=== PATIENT | male | born 1960 | race Two or more races ===

== ENCOUNTER → 2020-09-15 15:36 | Outpatient (BNVA) | payer OTHER, SELFPAY | PROVIDERS: PCP Internal Medicine; Visit Provider Anesthesiology | DX: M79.10 Myalgia, unspecified site (principal) | CPT/HCPCS: 20553; 99212; J3300 ==

== ENCOUNTER 2020-11-22 06:40 | Outpatient (REF) | payer OTHER, SELFPAY | END 2020-11-22 06:41 | disposition home or self-care (01) | LOC: HO.LAB 06:40 | PROVIDERS: Visit Provider Internal Medicine | DX: Z20.822 Contact with and (suspected) exposure to COVID-19 (principal) | CPT/HCPCS: 36415; C9803; U0003 ==

== ENCOUNTER 2020-12-30 07:04 | Emergency (ER) | payer OTHER, SELFPAY ==
[2020-12-30 07:16] VITALS: BP 151/81; PULSE 103; RESP 18; TEMP 36.6; O2SAT 97; BMI 28.9
--- NOTE | 2020-12-30 07:27 | ED.ARRPALP ---
HPI - Arrhythmia/Palpitations General Chief Complaint: General Medical Stated Complaint: RAPID HEART BEAT Time Seen by Provider: 12/30/20 07:27 Source: patient Mode of arrival: ambulatory Limitations: no limitations History of Present Illness HPI narrative: Patient history of hypertension high cholesterol on Deejay inhibitor was seen by his PCP yesterday and noticed that he has a sinus tachycardia advised to go to the hospital he comes here today patient denies any symptoms as such on arrival patient heart rate was 103 sinus rhythm patient feels fine otherwise no dizziness no shortness of breath no weakness denies any chest patient is unaware of tachycardia. Patient occasionally drinks coffee Related Data Previous Rx's Medication Instructions Recorded metoprolol tartrate 25 mg PO BID #60 tab 12/30/20 Allergies Allergy/AdvReac Type Severity Reaction Status Date / Time No Known Allergies Allergy Unverified 08/05/20 17:26 [No Known Allergies*] Review of Systems Review of Systems: Constitutional : No Weight loss, No Fever, No Chills ENT/Mouth : No sore throat, No Rhinorrhea Eyes: No Eye Pain, No Swelling Cardiovascular : No Chest Pain, no palpitations Respiratory : No Cough, No Sputum, no shortness of breath Gastrointestinal : no Nausea, No Vomiting, No Diarrhea, No abdominal Pain, no black stools Genitourinary : No Dysuria, No Urinary Frequency Musculoskeletal : No joint pain, No Myalgias, No Joint Swelling Skin : No Skin Lesions, No rash Neuro : No Weakness, No Numbness, No Dizziness, No Headache Psych : No Anxiety/Panic, No Depression Heme/Lymph: No Bruising, No Lymphadenopathy Endocrine : No Polyuria, No Polydipsia All other systems reviewed and are negative [facility] Past Medical History Medical History Myalgia, unspecified site Physical Exam Vital Signs: Vital Signs: Last Vital Signs Temp 97.8 F 12/30/20 07:16 Pulse 103 H 12/30/20 09:35 Resp 18 12/30/20 07:16 BP 151/81 H 12/30/20 09:35 Pulse Ox 97 12/30/20 07:16 Body Mass Index 28.9 Appearance: Alert. Oriented X3. No acute distress. Eyes: Pupils equal, round and reactive to light. ENT: Pharynx normal. Neck: Normal inspection. Neck supple. CVS: Normal heart rate and rhythm. Pulses normal. Respiratory: No respiratory distress. Breath sounds normal. Abdomen: Soft and nontender. Bowel sounds are present, no mass palpable, no CVA tenderness Skin: Skin warm and dry. Normal skin color. Normal skin turgor. Extremities: No lower extremity edema. Neuro: Oriented X 3. No motor deficit. No sensory deficit. Course Course Course Narrative: Patient feeling much better now heart rate in 90s denies use of cocaine for last 1 year and from his severe not be using cocaine in future blood pressure on the higher side will give him Lopressor 25 mg twice daily for blood pressure control and tachycardia advised to follow with PCP MDM - Arrhythmia/Palpitations MDM Narrative Medical decision making narrative: Patient unaware of tachycardia asymptomatic and is sinus tachycardia etiology not very clear which check the labs check the thyroid Medical Records Attestation: I reviewed the patient's medical records. Lab Data Attestation: I reviewed the patient's lab results. Result diagrams: 12/30/20 07:41 12/30/20 07:41 Labs: Lab Results 12/30/20 12/30/20 Range/Units 07:41 07:41 WBC 4.1 L (4.8-10.8) X10*3/uL RBC 4.19 L (4.60-5.80) X10*6/uL Hgb 12.8 L (14.0-18.0) g/dl Hct 38.5 L (42-52) % MCV 91.9 (80-98) fL MCH 30.5 (27.0-33.0) pg MCHC 33.2 (31.0-36.0) g/dl RDW 12.9 (11.0-16.0) % Plt Count 202 (160-400) X10*3/uL MPV 10.6 (9.4-12.4) fL Immature Gran % (Auto) 0.5 H (0.0-0.4) % Neut % (Auto) 59.5 (45-73) % Lymph % (Auto) 24.8 (20-40) % Crosby % (Auto) 11.5 H (2-11) % Eos % (Auto) 2.5 (0-4) % Baso % (Auto) 1.2 (0-2) % Lymph # (Auto) 1.0 L (1.2-4.9) X10*3/uL Crosby # (Auto) 0.5 (0.1-1.2) X10*3/uL Eos # (Auto) 0.1 (0.0-0.4) X10*3/uL Baso # (Auto) 0.1 (0.0-0.2) X10*3/uL Abs Immat Gran (auto) 0.02 (0.00-0.03) X10*3/uL Absolute Neuts (auto) 2.4 (2.0-8.3) X10*3/uL Absolute Nucleated RBC 0.000 (0.0-0.012) X10*3/uL Nucleated RBC % (auto) 0.0 (0.0-0.2) /100WBC Sodium 141 (135-145) mmol/L Potassium 4.7 (3.3-5.1) mmol/L Chloride 107 (96-108) mmol/L Carbon Dioxide 27 (22-29) mmol/L Anion Gap 12 (12-20) BUN 15 (9-16) mg/dL Creatinine 0.91 (0.5-1.4) mg/dL Estim Creat Clear Calc 83.6 Estimated GFR > 60 Random Glucose 131 H (60-115) mg/dL Calcium 8.2 L (8.4-10.2) mg/dL Total Bilirubin 0.5 (0.0-1.0) mg/dL Direct Bilirubin 0.2 (0.0-0.5) mg/dL AST 30 (5-37) U/L ALT 40 (0-40) U/L Alkaline Phosphatase 91 (39-117) U/L Total Protein 6.5 (6.5-8.0) g/dL Albumin 4.0 (3.5-5.0) g/dL TSH 5.24 H (0.32-4.0) uIU/mL Discharge Plan Discharge Clinical Impression: Tachycardia Patient Disposition: Home, Self-Care Instructions: Tachycardia (ED) Additional Instructions: Do not use cocaine. Avoid caffeine drinks. Start taking the new medication as prescribed Prescriptions: New metoprolol tartrate 25 mg tablet 25 mg PO BID Qty: 60 RF: 0 Referrals: Joreg Soriano MD [Physician] - 1 week Interventions: ED Discharge Assessment Last Done: 12/30/20 09:40 Discharge Date/Time: 12/30/20 09:41
--- NOTE | 2020-12-30 07:35 | ECG_ITS ---
Test Reason : RAPID HR Blood Pressure : / mmHG Vent. Rate : 101 BPM Atrial Rate : 101 BPM P-R Int : 178 ms QRS Dur : 094 ms QT Int : 312 ms P-R-T Axes : 059 050 068 degrees QTc Int : 404 ms Sinus tachycardia Moderate voltage criteria for LVH, may be normal variant Nonspecific T wave abnormality Abnormal ECG When compared to the previous EKG of No significant changes seen Referred By: Uri Wolf Electronically Signed By:JORGE THURSTON MD
[2020-12-30 07:47] LABS: MANUAL DIFF FLAG NO
[2020-12-30 08:01] LABS: Basophils Absolute Auto 0.1 X10*3/uL (0.0-0.2); Basophils Percent Auto 1.2 % (0-2); Eosinophils Absolute Auto 0.1 X10*3/uL (0.0-0.4); Eosinophils Percent Auto 2.5 % (0-4); Hematocrit 38.5 % (42-52); Hemoglobin 12.8 g/dl (14.0-18.0); Imm Gran Abs Auto 0.02 X10*3/uL (0.00-0.03); Imm Gran Pct Auto 0.5 % (0.0-0.4); Lymphocytes Percent Auto 24.8 % (20-40); Mean Corpuscular HGB Conc 33.2 g/dl (31.0-36.0); Mean Corpuscular Hemoglobin 30.5 pg (27.0-33.0); Mean Corpuscular Volume 91.9 fL (80-98); Mean Platelet Volume 10.6 fL (9.4-12.4); Monocytes Absolute Auto 0.5 X10*3/uL (0.1-1.2); Monocytes Percent Auto 11.5 % (2-11); Neutrophils Absolute Auto 2.4 X10*3/uL (2.0-8.3); Neutrophils Percent Auto 59.5 % (45-73); Platelet Count 202 X10*3/uL (160-400); Red Blood Count 4.19 X10*6/uL (4.60-5.80); Red Cell Distribution Width 12.9 % (11.0-16.0); White Blood Count 4.1 X10*3/uL (4.8-10.8)
[2020-12-30 08:16] LABS: Alanine Aminotransferase 40 U/L (0-40); Alkaline Phosphatase 91 U/L (39-117); Anion Gap 12 (12-20); Aspartate Amino Transferase 30 U/L (5-37); Bilirubin Direct 0.2 mg/dL (0.0-0.5); Bilirubin Total 0.5 mg/dL (0.0-1.0); Blood Urea Nitrogen 15 mg/dL (9-16); Calcium 8.2 mg/dL (8.4-10.2); Carbon Dioxide 27 mmol/L (22-29); Chloride 107 mmol/L (96-108); Creatinine Clr Calc Pharmacy 83.6; Estimated Glomerular Filt Rate > 60; Glucose Random 131 mg/dL (60-115); Potassium 4.7 mmol/L (3.3-5.1); Sodium 141 mmol/L (135-145); Total Protein 6.5 g/dL (6.5-8.0)
[2020-12-30 08:35] LABS: Thyroid Stimulating Hormone 5.24 uIU/mL (0.32-4.0)
[2020-12-30 09:35] VITALS: BP 151/81; PULSE 103
[2020-12-30] MEDS: Metoprolol Tartrate 25 MG TABLET PO (09:35)
== END 2020-12-30 09:41 | disposition home or self-care (01) ==
PROVIDERS: Emergency Provider Internal Medicine; PCP Internal Medicine
DX: R00.0 Tachycardia, unspecified (principal); I10 Essential (primary) hypertension; Z79.899 Other long term (current) drug therapy
CPT/HCPCS: 36415; 80048; 80076; 84443; 85025; 93005; 99283; 99284

== ENCOUNTER → 2021-01-05 08:22 | Outpatient (BNVA) | payer OTHER, SELFPAY | PROVIDERS: PCP Internal Medicine; Visit Provider Anesthesiology | DX: M79.10 Myalgia, unspecified site (principal) | CPT/HCPCS: 20553; 99212; J3300 ==

== ENCOUNTER → 2021-01-10 10:31 | Outpatient (BNVA) | payer OTHER, SELFPAY | PROVIDERS: PCP Internal Medicine; Visit Provider Internal Medicine | DX: R00.0 Tachycardia, unspecified (principal); I10 Essential (primary) hypertension; F14.11 Cocaine abuse, in remission | CPT/HCPCS: 99202 ==

== ENCOUNTER → 2021-02-16 08:13 | Outpatient (REF) | payer OTHER, SELFPAY ==
--- NOTE | 2021-02-16 08:17 | CA_ITS ---
Transthoracic Echocardiogram Patient (Last, First, Middle): Luis A Godinez, Gender: Male Date of : 1960 Age: 60 Procedure Date: 02/16/2021 Procedure Type: Transthoracic Echocardiogram Location: OP Height: 165.1 cm Weight: 78.47 kg BSA: 1.86 m2 Heart Rate: bpm BP: 132 / 70 mmHg Salesperson [employer]: JAZLYN Flood MD: Orville Walter MD Paving Inspector: Jorge Soriano MD Symptoms: R00.0 - Tachycardia, unspecified Study Quality: Fair/contrast ECG Rhythm: Sinus Conclusions: - Essentially normal study Findings Procedure Information Contrast agent, definity, is being given per protocol without apparent complications. Left Ventricle Normal left ventricular size, thickness, and systolic function. The visually estimated ejection fraction is between 60-65%. Diastolic function is normal for age. Right Ventricle Normal right ventricular cavity size and systolic function. Atria The left atrium is likely dilated. Interatrial shunt cannot be excluded. The right atrium is normal in size. Aortic Valve The aortic valve structure and function is likely normal. There is no aortic valve stenosis. There is no aortic valve regurgitation. Mitral Valve Normal mitral valve structure and function. There is no mitral valve regurgitation. There is no mitral valve stenosis. Pulmonic Valve The pulmonic valve is likely normal. Tricuspid Valve Likely normal tricuspid valve structure and function. Tricuspid regurgitation envelope is inadequate for calculation of right ventricular systolic pressure. Great Vessels All visible segments of the aorta are normal in size. The pulmonary artery was not well visualized. Venous The inferior vena cava is normal in size and collapses greater than 50% with inspiration. Pericardium/Pleural There is no evidence of pericardial effusion. Prior Study Comparison No prior study available for comparison. Measurements 2D Linear Measurements IVSd: 1.01 0.6-0.9/0.6-1.0 cm LVIDd: 4.05 3.9-5.3/4.2-5.9 cm LVIDs: 2.60 2.0-3.6 cm LVPWd: 1.00 0.7-1.1 cm Ao Root: 3.21 2.1-3.5 cm LV Mass: 162.34 67-162/88-224 g LVOT Diam: 2.01 3.0+(-)1.3 cm Mitral Valve MV Pk E: 0.82 MV PK A: 0.57 MV Decel Time: 219.50 E/A: 1.43 E'Lateral: 0.08 E'Medial: 0.09 Decel Carlisle: 3.73 Aortic Valve AoV Pk Rajinder: 1.25 AoV Mn Rajinder: 0.86 AoV VTI: 0.22 AoV Pk Grad: 6.28 Aov Mn Grad: 3.22 LVOT LVOT Pk Rajinder: 1.23 LVOT Mn Rajinder: 0.77 LVOT VTI: 0.21 LVOT Pk Grad: 6.08 LVOT Mn Grad: 2.77 LVOT Diam: 2.01 LVOT Area: 3.18 Diastolic Function MV Pk E: 0.82 MV Pk A: 0.57 E/A: 1.43 E'Medial: 0.09 E' Laterial: 0.08 Great Vessels Aorta Ao Root-2D: 3.21 2.0-3.7 cm Ao Asc: 3.57 2.1-3.4 cm Ao Arch: 2.92 Updated in Other Vendor System with Status of Final Jorge Soriano MD electronically signed on 02/17/2021 11:36:58 AM with status of Final
== END ==
LOC: HO.CARD 08:13
PROVIDERS: Visit Provider Internal Medicine
DX: R00.0 Tachycardia, unspecified (principal)
CPT/HCPCS: 93306; Q9957

== ENCOUNTER → 2021-02-28 10:29 | Outpatient (BNVA) | payer OTHER, SELFPAY | PROVIDERS: PCP Internal Medicine; Visit Provider Nurse Practitioner Family | DX: R00.0 Tachycardia, unspecified (principal); I10 Essential (primary) hypertension; F14.11 Cocaine abuse, in remission | CPT/HCPCS: 99212 ==

== ENCOUNTER → 2021-03-14 09:32 | Outpatient (BNVA) | payer OTHER, SELFPAY | PROVIDERS: PCP Internal Medicine; Visit Provider Nurse Practitioner Family ==

== ENCOUNTER → 2021-03-14 | Outpatient (REF) | payer OTHER, SELFPAY ==
--- NOTE | 2021-03-14 11:22 | ECG_ITS ---
Hook-up date: 2021-03-14 09:53:00 Duration: 27:37:00 Test Indications: UNSPEC TACHYCARDIA Medications: 236424 QRS complexes 1 Ventricular ectopics which represent <1 % of total QRS comp. 211 Supraventricular ectopics which represent <1 % of total QRS comp. * Paced QRS complexs which represent % of total QRS comp. VENTRICULAR ECTOPY 1 Isolated 0 Bigeminal Cycles 0 Couplets 0 Runs 0 Beats in Runs * Beats LONGEST at * BPM at :: -- * Beats FASTEST at * BPM at :: -- SUPRAVENTRICULAR ECTOPY 208 Isolated 0 Couplets 1 Runs 3 Beats in Runs 3 Beats LONGEST at 214 BPM at 10:45:47 2021-03-14 3 Beats FASTEST at 214 BPM at 10:45:47 2021-03-14 HEART RATES 61 MIN at 05:28:25 2021-03-15 93 AVG 152 MAX at 12:05:22 2021-03-14 LONGEST RR 1.0880 secs at 03:52:44 2021-03-15 S-T LEVELS Channel 1 - 128 mm at 09:53:00 2021-03-14 - 128 mm at 09:53:00 2021-03-14 Channel 2 - 128 mm at 09:53:00 2021-03-14 - 128 mm at 09:53:00 2021-03-14 Channel 3 - 128 mm at 02:91:21 -- - 128 mm at 02:91:21 Underlying rhythm is sinus; Average ventricular rate 93/min; About 44% of the time, rate>100/min (sinus tachycardia); Rare PACs, mostly isolated, no significant runs; Patient did not return diary Referred By: Ju Nelson Overread By: ALEM MARTI
== END ==
LOC: HO.CARD
PROVIDERS: Visit Provider Nurse Practitioner Family
DX: R00.0 Tachycardia, unspecified (principal)
CPT/HCPCS: 93226

== ENCOUNTER → 2021-04-04 09:30 | Outpatient (BNVA) | payer OTHER, SELFPAY | PROVIDERS: PCP Internal Medicine; Visit Provider Nurse Practitioner Family | DX: R00.0 Tachycardia, unspecified (principal); I10 Essential (primary) hypertension; F14.11 Cocaine abuse, in remission; I49.1 Atrial premature depolarization | CPT/HCPCS: Q3014 ==

== ENCOUNTER 2021-04-21 10:09 | Outpatient (REF) | payer OTHER, SELFPAY | END 2021-04-21 10:10 | disposition home or self-care (01) | LOC: HO.LAB 10:09 | PROVIDERS: Visit Provider Internal Medicine | DX: Z20.822 Contact with and (suspected) exposure to COVID-19 (principal) | CPT/HCPCS: C9803; U0003; U0005 ==

== ENCOUNTER 2021-08-08 09:07 | Outpatient (REF) | payer OTHER, SELFPAY ==
--- NOTE | ~2021-08-08 | MR_ITS ---
MR LUMBAR SPINE WITHOUT IV CONTRAST CLINICAL INFORMATION: Lumbago with left-sided sciatica. COMPARISON: Lumbar spine radiographs 02/07/2018. TECHNIQUE: MRI of the lumbar spine was obtained using routine sequences without contrast. FINDINGS: There is transitional anatomy. 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 5 nonrib-bearing lumbar-type vertebral bodies. There is grade 1 retrolisthesis of L4 on L5 and L5 on S1. There is disc desiccation at L5-S1. Modic type I endplate signal changes at L5-S1. No additional bone marrow edema. No acute fractures. Conus terminates at the L1 level. Fatty filum. There is bilateral perinephric stranding. There is a 1.3 cm probable hemorrhagic cyst partially imaged within the left kidney that can be verified with renal ultrasound. L1-L2: Left lateral disc protrusion that is in part disc osteophyte resulting in mass effect on the exiting left L1 nerve root at the left foraminal/extraforaminal junction. No central canal stenosis. No right foraminal stenosis. L2-L3: Small annular disc bulge and mild to moderate bilateral facet arthropathy and ligamentum flavum thickening. No central canal stenosis. Mild foraminal encroachment bilaterally. L3-L4: Diffuse annular disc bulge and mild to moderate bilateral facet arthropathy and ligamentum flavum thickening. No central canal stenosis. Mild foraminal encroachment bilaterally. L4-L5: Grade 1 retrolisthesis. Diffuse annular disc bulges in part disc osteophyte and severe bilateral facet arthropathy and ligamentum flavum thickening. Small synovial cyst projecting medially from the right facet joint. These findings in concert result in severe central canal stenosis, severe bilateral subarticular zone stenosis with compression of the traversing L5 nerve roots bilaterally, and moderate to severe bilateral foraminal stenosis with compression of the exiting L4 nerve roots bilaterally. L5-S1: Grade 1 retrolisthesis. Diffuse disc osteophyte and severe bilateral facet arthropathy and ligamentum flavum giving. Epidural lipomatosis. Findings in concert result in severe central canal stenosis as well as moderate bilateral foraminal stenosis with mild mass effect on the exiting nerve roots bilaterally. MR/MR lumbar spine wo con IMPRESSION: - Transitional anatomy. S1 is lumbarized sharing a rudimentary disc with S2. Please correlate with plain films prior to any percutaneous or surgical intervention. - At L5-S1, advanced multifactorial degenerative changes and epidural lipomatosis result in severe central canal stenosis as well as moderate bilateral foraminal stenosis with mild mass effect on the exiting nerve roots bilaterally. - At L4-L5, grade 1 retrolisthesis and advanced multifactorial degenerative changes result in severe central canal stenosis, severe bilateral subarticular zone stenosis with compression of the traversing L5 nerve roots bilaterally, and moderate to severe bilateral foraminal stenosis with compression of the exiting L4 nerve roots bilaterally. - At L1-L2, there is a left lateral disc protrusion that is in part disc osteophyte resulting in mass effect on the exiting left L1 nerve root at the left foraminal/extraforaminal junction. - There is a 1.3 cm probable hemorrhagic cyst partially imaged within the left kidney that can be verified with renal ultrasound.
== END 2021-08-08 09:08 | disposition home or self-care (01) ==
LOC: HO.MRI 09:07
PROVIDERS: PCP Internal Medicine; Visit Provider Internal Medicine
DX: M54.42 Lumbago with sciatica, left side (principal)
CPT/HCPCS: 72148

== ENCOUNTER → 2021-08-18 08:04 | Outpatient (BNVA) | payer OTHER, SELFPAY | PROVIDERS: PCP Internal Medicine; Visit Provider Anesthesiology | DX: M79.10 Myalgia, unspecified site (principal) | CPT/HCPCS: 20552; 99212; J3300 ==

== ENCOUNTER 2021-11-02 12:41 | Outpatient (REF) | payer OTHER, SELFPAY ==
[2021-11-02 13:01] LABS: COVID-19 Test Negative (Negative); IDNOW Serial# 16C4AD1C
== END 2021-11-02 12:42 | disposition home or self-care (01) ==
LOC: HO.LAB 12:41
PROVIDERS: Visit Provider Internal Medicine
DX: Z20.822 Contact with and (suspected) exposure to COVID-19 (principal)
CPT/HCPCS: 36415; 87635; C9803

== ENCOUNTER 2021-11-15 09:03 | Outpatient (REF) | payer OTHER, SELFPAY ==
[2021-11-15 10:06] LABS: COVID-19 Test Negative (Negative); IDNOW Serial# 16C4AD1C
== END 2021-11-15 09:04 | disposition home or self-care (01) ==
LOC: HO.LAB 09:03
PROVIDERS: Visit Provider Internal Medicine
DX: Z20.822 Contact with and (suspected) exposure to COVID-19 (principal)
CPT/HCPCS: 36415; 87635; C9803

== ENCOUNTER 2021-11-28 13:13 | Outpatient (REF) | payer OTHER, SELFPAY ==
[2021-11-28 15:11] LABS: Binax Internal Control QC Valid; Binax Now Covid-19 Ag Negative (Negative)
== END 2021-11-28 13:14 | disposition home or self-care (01) ==
LOC: HO.LAB 13:13
PROVIDERS: Visit Provider Internal Medicine
DX: Z20.822 Contact with and (suspected) exposure to COVID-19 (principal)
CPT/HCPCS: 36415; C9803

== ENCOUNTER → 2021-11-29 09:05 | Outpatient (BNVA) | payer OTHER, SELFPAY | PROVIDERS: PCP Internal Medicine; Visit Provider Internal Medicine | DX: Z13.89 Encounter for screening for other disorder (principal) ==

== ENCOUNTER → 2022-04-04 13:43 | Outpatient (BNVA) | payer OTHER, SELFPAY | PROVIDERS: PCP Internal Medicine; Referring Provider Internal Medicine; Visit Provider Nurse Practitioner Family | DX: R00.0 Tachycardia, unspecified (principal); I10 Essential (primary) hypertension; I49.1 Atrial premature depolarization; F14.11 Cocaine abuse, in remission | CPT/HCPCS: 93005; 99212 ==

== ENCOUNTER 2022-04-26 11:51 | Outpatient (REF) | payer OTHER, SELFPAY ==
[2022-04-26 12:03] LABS: MANUAL DIFF FLAG NO
[2022-04-26 13:10] LABS: Alanine Aminotransferase 28 U/L (0-40); Albumin Level 4.3 g/dL (3.5-5.0); Alkaline Phosphatase 102 U/L (39-117); Anion Gap 15 (12-20); Aspartate Amino Transferase 23 U/L (5-37); Bilirubin Total 0.4 mg/dL (0.0-1.0); Blood Urea Nitrogen 11 mg/dL (9-16); Calcium 9.1 mg/dL (8.4-10.2); Carbon Dioxide 25 mmol/L (22-29); Chloride 106 mmol/L (96-108); Cholesterol 180 mg/dL; Estimated Glomerular Filt Rate > 60; Glucose Fasting 110 mg/dL (60-99); HDL Cholesterol 62 mg/dL; LDL Cholesterol Calculated 97 mg/dl; Potassium 4.6 mmol/L (3.3-5.1); Sodium 141 mmol/L (135-145); Total Protein 7.2 g/dL (6.5-8.0); Triglycerides 108 mg/dL
[2022-04-26 13:17] LABS: Basophils Absolute Auto 0.1 X10*3/uL (0.0-0.2); Eosinophils Absolute Auto 0.1 X10*3/uL (0.0-0.4); Eosinophils Percent Auto 2.8 % (0-4); Hematocrit 40.3 % (42.0-52.0); Hemoglobin 13.2 g/dl (14.0-18.0); Imm Gran Abs Auto 0.03 X10*3/uL (0.00-0.03); Imm Gran Pct Auto 0.6 % (0.0-0.4); Lymphocytes Absolute Auto 1.4 X10*3/uL (1.2-4.9); Lymphocytes Percent Auto 28.6 % (20-40); Mean Corpuscular HGB Conc 32.8 g/dl (31.0-36.0); Mean Corpuscular Hemoglobin 29.3 pg (27.0-33.0); Mean Corpuscular Volume 89.4 fL (80.0-98.0); Mean Platelet Volume 10.4 fL (9.4-12.4); Monocytes Absolute Auto 0.6 X10*3/uL (0.1-1.2); Monocytes Percent Auto 11.3 % (2-11); Neutrophils Absolute Auto 2.8 x10*3/uL (2.0-8.3); Neutrophils Percent Auto 55.7 % (45-73); Platelet Count 291 X10*3/uL (160-400); Red Blood Count 4.51 X10*6/uL (4.60-5.80); Red Cell Distribution Width 13.7 % (11.0-16.0)
[2022-04-26 13:32] LABS: TSH reflex Free T4 2.08 uIU/mL (0.32-4.0)
== END 2022-04-26 11:52 | disposition home or self-care (01) ==
LOC: HO.LAB 11:51
PROVIDERS: PCP Internal Medicine; Visit Provider Nurse Practitioner Family
DX: R00.0 Tachycardia, unspecified (principal)
CPT/HCPCS: 36415; 80053; 80061; 84443; 85025

== ENCOUNTER 2022-06-14 16:15 | Outpatient (REF) | payer OTHER, SELFPAY ==
--- NOTE | ~2022-06-14 | XR_ITS ---
EXAMINATION: XR CERVICAL SPINE CLINICAL INFORMATION: Spondylosis COMPARISON: Previous x-ray January 2018 TECHNIQUE: 5 views of the cervical spine including bilateral oblique were obtained. FINDINGS: There is mild head tilt to the right and curvature of the mid cervical spine to the left. Bone alignment is otherwise normal. No fracture or dislocation is seen. There is multilevel degenerative spondylosis and degenerative disc disease from C3-C4-C5 the C7-T1. There is mild right-sided neuroforaminal narrowing from bony osteophyte at C4-C5 and C5-C6. There is moderate to severe left-sided neuroforaminal narrowing from bony osteophyte from C3-C4 to C6-C7. Prevertebral soft tissues are normal. XR/XR cervical spine 4V IMPRESSION: Multilevel degenerative changes.
== END 2022-06-14 16:16 | disposition home or self-care (01) ==
LOC: HO.XRAY 16:15
PROVIDERS: PCP Internal Medicine; Visit Provider Anesthesiology
DX: M54.2 Cervicalgia (principal); M47.812 Spondylosis without myelopathy or radiculopathy, cervical region
CPT/HCPCS: 72050; 99212

== ENCOUNTER 2022-07-03 13:28 | Outpatient (REF) | payer OTHER, SELFPAY ==
--- NOTE | ~2022-07-03 | XR_ITS ---
EXAMINATION: XR FOOT, RIGHT CLINICAL INFORMATION: Right foot pain for 2 to 3 months. COMPARISON: None TECHNIQUE: AP, lateral, and oblique views of the right foot. FINDINGS: There is no acute fracture, dislocation or subluxation. Alignment is anatomic. There is mild dorsal first metatarsophalangeal joint spurring likely early arthritic changes. No lytic or sclerotic process seen. The soft tissues are normal. XR/XR foot RT min 3V IMPRESSION: Mild degenerative arthritic changes first MTP joint.
== END 2022-07-03 13:29 | disposition home or self-care (01) ==
LOC: HO.XRAY 13:28
PROVIDERS: PCP Internal Medicine; Visit Provider Internal Medicine Geriatric Medicine
DX: M79.671 Pain in right foot (principal)
CPT/HCPCS: 73630

== ENCOUNTER → 2022-07-19 15:54 | Outpatient (BNVA) | payer OTHER, SELFPAY | PROVIDERS: PCP Internal Medicine; Visit Provider Anesthesiology | DX: M47.812 Spondylosis without myelopathy or radiculopathy, cervical region (principal); M54.2 Cervicalgia | CPT/HCPCS: 99212 ==

== ENCOUNTER 2022-08-23 09:07 | Outpatient (REF) | payer OTHER, SELFPAY ==
--- NOTE | ~2022-08-23 | MR_ITS ---
EXAMINATION: MR CERVICAL SPINE WITHOUT CONTRAST CLINICAL INFORMATION: Spondylosis without myelopathy or radiculopathy, cervical region. COMPARISON: None available. TECHNIQUE: MRI of the cervical spine was performed using routine sequences without contrast. FINDINGS: The cervical vertebral bodies maintain normal height. There is grade 1 retrolisthesis of C4 on C5 with severe disc height loss. There is moderate disc height loss at C6-C7 and C7-T1. Endplate edema seen at the C4-C5 level. There is bone marrow edema about the left-sided C5-C6 facets reflecting ongoing advanced arthropathy. Degenerative changes are seen at the atlantodental articulation. The cervical cord signal appears normal. The imaged intracranial contents appear normal. The extraspinal soft tissues appear normal. SPINAL LEVELS: C2-C3: No posterior disc abnormality. Moderate to severe left facet arthropathy. No spinal canal or neural foraminal stenosis. C3-C4: No posterior disc abnormality. Severe left facet arthropathy resulting in mild to moderate left neural foraminal stenosis. C4-C5: Grade 1 retrolisthesis with disc osteophyte complex and ligamentum flavum infolding resulting in severe spinal canal stenosis with ventral and dorsal cord deformity. Uncovertebral hypertrophy with severe facet arthropathy results in severe bilateral neural foraminal stenosis. C5-C6: Disc osteophyte complex with severe left facet arthropathy uncovertebral hypertrophy results in severe left and moderate right neural foraminal stenosis and mild spinal canal stenosis. C6-C7: Disc osteophyte complex with left more than right uncovertebral hypertrophy and facet arthropathy resulting in severe bilateral neural foraminal stenosis. No spinal canal stenosis. C7-T1: Disc osteophyte complex with uncovertebral hypertrophy resulting in severe bilateral neural foraminal stenosis. No spinal canal stenosis. MR/MR cervical spine wo con IMPRESSION: Multilevel degenerative spondylosis most advanced at C4-C5 where there is grade 1 retrolisthesis and severe spinal canal stenosis with ventral and dorsal cord deformity in addition to severe bilateral neural foraminal stenosis. Bone marrow edema seen about the left-sided C5-C6 facets reflecting ongoing advanced arthropathy. Multilevel advanced neural foraminal stenosis is demonstrated as detailed above.
== END 2022-08-23 09:08 | disposition home or self-care (01) ==
LOC: HO.MRI 09:07
PROVIDERS: Visit Provider Anesthesiology
DX: M47.812 Spondylosis without myelopathy or radiculopathy, cervical region (principal); M54.2 Cervicalgia
CPT/HCPCS: 72141

== ENCOUNTER 2022-12-12 14:01 | Emergency (ER) | payer OTHER, SELFPAY ==
--- NOTE | ~2022-12-12 | XR_ITS ---
EXAMINATION: XR FOOT, RIGHT CLINICAL INFORMATION: Lateral foot pain COMPARISON: 07/03/2022 TECHNIQUE: AP, lateral, and oblique views of the right foot. FINDINGS: No fracture or dislocation. Appropriate alignment. Joint spaces are maintained. Small osteophytes of the first metatarsophalangeal joint. The soft tissues are unremarkable. XR/XR foot RT min 3V IMPRESSION: No acute abnormality. Mild degenerative change at the first metatarsophalangeal joint.
--- NOTE | ~2022-12-12 | US_ITS ---
EXAMINATION: US VENOUS ULTRASOUND WITH DOPPLER LOWER EXTREMITY, RIGHT CLINICAL INFORMATION: Right foot pain and calf tenderness COMPARISON: None TECHNIQUE: Ultrasound of the deep veins is performed from the hip to the calf with compression sonography and color and pulse Doppler assessment. Spectral analysis with color-flow imaging is performed. FINDINGS: There is normal venous compression and respiratory variation and augmented flow. The visualized common femoral vein, superficial femoral vein, profunda femoral vein, popliteal vein, and the trifurcation region shows no evidence of deep venous thrombosis. There is no significant popliteal fossa cyst. If the patient's symptoms persist, followup ultrasound in 5 days 7 days might be of value to exclude proximal propagation from a non-visualized calf vein. US/US venous duplex LE RT IMPRESSION: No DVT demonstrated in the right lower extremity.
--- NOTE | ~2022-12-12 | XR_ITS ---
EXAMINATION: XR CHEST CLINICAL INFORMATION: Right foot pain and swelling COMPARISON: 03/30/2028 TECHNIQUE: Frontal view of the chest was obtained. FINDINGS: No significant abnormality is noted involving the heart, lungs, mediastinum, bony thorax or soft tissues. Bibasilar infiltrates have cleared since the prior study. XR/XR chest 1V IMPRESSION: Unremarkable examination.
[2022-12-12 14:40] VITALS: BP 172/91; PULSE 134; RESP 18; TEMP 37.7; O2SAT 97; BMI 28.3
--- NOTE | 2022-12-12 14:40 | ED_ITS ---
HPI - Extremity Problem General Chief complaint: Extremity Injury, Lower <SIMBA Ayala - Last Filed: 12/12/22 14:45> Stated complaint: Gout flare <SIMBA Ayala - Last Filed: 12/12/22 14:45> Time Seen by Provider: 12/12/22 17:09 <SIMBA Ayala - Last Filed: 12/12/22 14:45> Source: patient <SIMBA Yeh - Last Filed: 12/12/22 19:20> Mode of arrival: ambulatory <SIMBA Yeh - Last Filed: 12/12/22 19:20> Limitations: no limitations <SIMBA Yeh Last Filed: 12/12/22 19:20> History of Present Illness HPI Narrative: 62yoM c PMHx of HTN and gout who is presenting to the ED c c/o of right foot pain/redness since last night worse today. Reports he has been taking motrin and tylenol and no symptomatic tx. Denies fevers, chills, CP, SOB, HARRISON, abd pain, leg swelling, rashes, recent falls/trauma Or any other symptoms complaints or concerns at this time. <SIMBA Yeh - Last Filed: 12/12/22 19:20> MD Complaint: extremity pain <SIMBA Yeh - Last Filed: 12/12/22 19:20> Onset (ago): day(s) (yesterday ) <SIMBA Yeh - Last Filed: 12/12/22 19:20> Pain Consistency: constant <SIMBA Yeh - Last Filed: 12/12/22 19:20> Location: right and other (foot ) <SIMBA Yeh Last Filed: 12/12/22 19:20> Severity scale (1-10): >10 <SIMBA Yeh Last Filed: 12/12/22 19:20> Quality: burning, aching and constant <SIMBA Yeh - Last Filed: 12/12/22 19:20> Radiation: proximal (to right calf ) <SIMBA Yeh Last Filed: 12/12/22 19:20> Relieving factors: nothing <SIMBA Yeh - Last Filed: 12/12/22 19:20> Exacerbating factors: range of motion, weight bearing, walking and palpation <SIMBA Yeh - Last Filed: 12/12/22 19:20> Associated symptoms: denies other symptoms <SIMBA Yeh - Last Filed: 12/12/22 19:20> Context: history of gout <SIMBA Yeh - Last Filed: 12/12/22 19:20> Related Data Home medications: Home Medications Medication Instructions Recorded Confirmed buspirone 10 mg tablet 10 mg PO BID 01/05/21 04/04/22 cholecalciferol (vitamin D3) 50 50 mcg PO DAILY 01/05/21 04/04/22 mcg (2,000 unit) capsule enalapril maleate 10 mg tablet 10 mg PO DAILY 01/05/21 04/04/22 simvastatin 40 mg tablet 40 mg PO BEDTIME 01/05/21 04/04/22 tizanidine 2 mg tablet 2 mg PO Q6-8H PRN 01/05/21 04/04/22 gabapentin 300 mg capsule 300 mg PO TID 08/18/21 04/04/22 mirtazapine 15 mg tablet 15 mg PO BEDTIME 04/04/22 04/04/22 trazodone 50 mg tablet 50 mg PO BEDTIME PRN 04/04/22 04/04/22 cyclobenzaprine 10 mg tablet 10 mg PO TID PRN 06/14/22 Previous Rx's Medication Instructions Recorded cephalexin 500 mg capsule 500 mg PO Q6H 7 days #28 caps 12/12/22 doxycycline monohydrate 100 mg 100 mg PO BID 7 days #14 tabs 12/12/22 tablet indomethacin 50 mg capsule 50 mg PO Q8H 5 days #15 caps 12/12/22 oxycodone 5 mg tablet 5 mg PO Q6H PRN pain #14 tabs 12/12/22 prednisone 20 mg tablet 40 mg PO DAILY inflammation 5 days 12/12/22 #10 tabs <SIMBA Ayala - Last Filed: 12/12/22 14:45> Allergies/Adverse reactions: Allergies Allergy/AdvReac Type Severity Reaction Status Date / Time No Known Allergies Allergy Verified 07/19/22 16:09 [No Known Allergies*] <SIMBA Ayala - Last Filed: 12/12/22 14:45> Review of Systems Review of Systems: Constitutional : No Weight loss, No Fever, No Chills, No Night Sweats, No Fatigue, No Malaise ENT/Mouth : No Hearing loss, No Ear Pain, No Nasal Congestion, No Sinus Pain, No Hoarseness, No sore throat, No Rhinorrhea, No Swallowing Difficulty Eyes: No Eye Pain, No Swelling, No Redness, No Foreign Body, No Discharge, No Vision Changes Cardiovascular : No Chest Pain, No SOB, No Dyspnea on Exertion, No Orthopnea, No Edema, No Palpitations Respiratory : No Cough, No Sputum, No Wheezing, No Smoke Exposure, No Dyspnea Gastrointestinal : No Nausea, No Vomiting, No Diarrhea, No Constipation, No abdominal Pain, No Hematochezia, No Melena Genitourinary : no irregular bleeding, No Dysuria, No Urinary Frequency, No Hematuria, No Urinary Incontinence, No Urgency, No Flank Pain, No Urinary Flow Changes, No Hesitancy Musculoskeletal : + right joint pain, No Myalgias, No Joint Swelling Skin : No Skin Lesions, No rash Neuro : No Weakness, No Numbness, No Paresthesias, No Loss of Consciousness, No Dizziness, No Headache Psych : No Anxiety/Panic, No Depression, No SI/HI/AH/VH, No Social Issues, Heme/Lymph: No Bruising, No Bleeding,No Lymphadenopathy Endocrine : No Polyuria, No Polydipsia, No Temperature Intolerance <SIMBA Yeh - Last Filed: 12/12/22 19:20> Yes all other systems are reviewed and are negative <SIMBA Yeh - Last Filed: 12/12/22 19:20> FOR[facility]LY [facility], LAT[facility] Past Medical History Attestation statement: The following information was validated with the patient. <SIMBA Yeh - Last Filed: 12/12/22 19:20> Source: old records reviewed and nursing notes reviewed <SIMBA Yeh - Last Filed: 12/12/22 19:20> Medical History: Medical History Cocaine abuse in remission Essential hypertension Myalgia, unspecified site <SIMBA Ayala - Last Filed: 12/12/22 14:45> Surgical History: Surgical History History of left knee surgery <SIMBA Ayala - Last Filed: 12/12/22 14:45> Family History Family History: Family History Father No problems noted. Mother Diabetes Rheumatoid arthritis <SIMBA Ayala - Last Filed: 12/12/22 14:45> Social History Social History: Social History Patient Tobacco Use Status: Never used Tobacco Advance Directives: No Advance Directives Information Provided: No <SIMBA Ayala - Last Filed: 12/12/22 14:45> Physical Exam Vital Signs: Vital Signs: Last Vital Signs Temp 99.9 F 12/12/22 14:40 Pulse 134 H 12/12/22 14:40 Resp 18 12/12/22 14:40 BP 172/91 H 12/12/22 14:40 Pulse Ox 97 12/12/22 14:40 O2 Del Method 12/12/22 14:40 BMI result Body Mass Index 28.3 <SIMBA Ayala - Last Filed: 12/12/22 14:45> Vital Signs: Last Vital Signs Temp 99.9 F 12/12/22 14:40 Pulse 134 H 12/12/22 14:40 Resp 18 12/12/22 14:40 BP 172/91 H 12/12/22 14:40 Pulse Ox 97 12/12/22 14:40 O2 Del Method 12/12/22 14:40 BMI result Body Mass Index 28.3 vital signs have been reviewed as normal and appeared to be correct. Blood pressure 172/91 Heart rate 134. Respiration rate normal. Temperature normal. Oxygen saturation normal. <SIMBA Yeh - Last Filed: 12/12/22 19:20> Appearance: Alert. Oriented X3. No acute distress. Head: Normal external exam. Normocephalic. Atraumatic. Eyes: PERRLA. EOMI. Conjunctiva and sclera normal. Eyelids normal. ENT: Pharynx normal. Uvula midline. Moist mucous membranes. Neck: Normal inspection. Neck supple. FROM. CVS: Normal heart rate and rhythm. Respiratory: No respiratory distress. Painless inspiration. Skin: Skin warm and dry. Normal skin color. Normal skin turgor. Pt c TTP of ri ght foot at the lateral foot c mild erythema. No additional rashes/lesions/lacerations noted. Extremities: Patient has full range of motion of the right foot/ ankle. Not consistent with septic joint. No lower extremity edema. Patient does have right calf tenderness. No tenderness to the left calf. Otherwise all other extremities exhibit normal range of motion nontender. Neuro: Oriented X 3. No motor deficit. No sensory deficit. Reflexes normal. Normal steady gait. No focal neuro deficits noted. Vascular: + radial pulses/+ 2 distal pedal pulses/+2 dorsalis pedis b/l. Normal cap refill. No cyanosis noted to upper extremity nails and lower extremity toes nails. <SIMBA Yeh - Last Filed: 12/12/22 19:20> Course Course Course Narrative: RME - 62 yo male presents to the ER for evaluation of gout in the right lateral foot, unable to sleep or walk. Reports feels like similar gout flares. No injuries. No fevers. Exam with tenderness, mild erythema to the lateral foot. Atypical of a gout presentation. HR 130 in triage w/ SBP 170s. XR ordered. <SIMBA Ayala - Last Filed: 12/12/22 14:45> Reevaluation(s) Reevaluation #1: 62-year-old male with a past medical history of gout presenting to the ER with complaints of right lateral foot pain/ redness unable to walk or sleep due to the pain. Reports it feels like is similar gout flare-ups although it is radiating up to his right calf and this is new for him. He denies any injuries. He denies any fevers. He denies any chest pain or shortness of breath or dyspnea on exertion orthopnea or lower extremity swelling recent falls or trauma. On exam he is noted to have mild soft tissue swelling and erythema to the lateral aspect of the right foot. He has full range of motion of all toes/right foot and ankle joint. No obvious ligamentous or tendon injury noted. Not consistent with septic joint. No streaking is noted. Picture was placed in the chart. Labs obtained and reviewed and patient's white blood cell count is within normal limits. ESR 16. CRP 4.14. Otherwise all other labs are within normal limits. Patient negative for COVID/RSV/flu. Chest x-ray within normal limits no acute processes are noted. I obtained an EKG due to patient's was tachycardic although EKG normal sinus rhythm with ventricular rate of 98 with left atrial enlargement with LVH nonspecific T-wave abnormalities no acute ischemic change are noted. Therefore at this time pending ultrasound of right lower extremity to rule out DVT. If negative patient will be discharged with symptomatic treatment for gout along with crutches and instructions return if any new or worsening symptoms to follow up with primary care provider. Patient understands agrees with this plan. <SIMBA Yeh - Last Filed: 12/12/22 19:20> Time: 18:51 <SIMBA Yeh - Last Filed: 12/12/22 19:20> Medications Administered Discontinued Medications Generic Name Dose Route Start Last Admin Trade Name Freq PRN Reason Stop Dose Admin Acetaminophen 975 mg 12/12/22 17:19 12/12/22 17:36 Acetaminophen 325 Mg Tablet PO 12/12/22 17:20 975 mg ONCE ONE Administration Indomethacin 50 mg 12/12/22 17:17 12/12/22 17:43 Indomethacin 25 Mg Capsule PO 12/12/22 17:18 50 mg ONCE ONE Administration Oxycodone HCl 5 mg 12/12/22 17:17 12/12/22 17:36 Oxycodone Hcl Immed Release 5 Mg Tablet PO 12/12/22 17:18 5 mg ONCE ONE Administration <SIMBA Ayala - Last Filed: 12/12/22 14:45> Medications Administered Discontinued Medications Generic Name Dose Route Start Last Admin Trade Name Freq PRN Reason Stop Dose Admin Acetaminophen 975 mg 12/12/22 17:19 12/12/22 17:36 Acetaminophen 325 Mg Tablet PO 12/12/22 17:20 975 mg ONCE ONE Administration Indomethacin 50 mg 12/12/22 17:17 12/12/22 17:43 Indomethacin 25 Mg Capsule PO 12/12/22 17:18 50 mg ONCE ONE Administration Oxycodone HCl 5 mg 12/12/22 17:17 12/12/22 17:36 Oxycodone Hcl Immed Release 5 Mg Tablet PO 12/12/22 17:18 5 mg ONCE ONE Administration <SIMBA Yeh - Last Filed: 12/12/22 19:20> Medical Decision Making Lab Data MDM Lab Attestation statement: I reviewed the patient's lab results. <SIMBA Yeh - Last Filed: 12/12/22 19:20> Result Diagrams: 12/12/22 16:30 12/12/22 16:30 <SIMBA Ayala - Last Filed: 12/12/22 14:45> Labs: Lab Results 12/12/22 12/12/22 12/12/22 Range/Units 16:30 16:30 16:30 WBC 8.2 (4.8-10.8) X10*3/uL RBC 4.76 (4.60-5.80) X10*6/uL Hgb 14.3 (14.0-18.0) g/dl Hct 42.5 (42.0-52.0) % MCV 89.3 (80.0-98.0) fL MCH 30.0 (27.0-33.0) pg MCHC 33.6 (31.0-36.0) g/dl RDW 13.6 (11.0-16.0) % Plt Count 251 (160-400) X10*3/uL MPV 10.1 (9.4-12.4) fL Immature Gran % (Auto) 1.3 H (0.0-0.4) % Neut % (Auto) 75.8 H (45-73) % Lymph % (Auto) 11.9 L (20-40) % [place] % (Auto) 10.0 (2-11) % Eos % (Auto) 0.6 (0-4) % Baso % (Auto) 0.4 (0-2) % Lymph # (Auto) 1.0 L (1.2-4.9) X10*3/uL [place] # (Auto) 0.8 (0.1-1.2) X10*3/uL Eos # (Auto) 0.1 (0.0-0.4) X10*3/uL Baso # (Auto) 0.0 (0.0-0.2) X10*3/uL Abs Immat Gran (auto) 0.11 H (0.00-0.03) X10*3/uL Absolute Neuts (auto) 6.2 (2.0-8.3) x10*3/uL Absolute Nucleated RBC 0.000 (0.0-0.012) X10*3/uL Nucleated RBC % (auto) 0.0 (0.0-0.2) /100WBC ESR 16 H (0-15) MM/HR Sodium 141 (135-145) mmol/L Potassium 3.9 (3.3-5.1) mmol/L Chloride 103 (96-108) mmol/L Carbon Dioxide 27 (22-29) mmol/L Anion Gap 15 (12-20) BUN 16 (9-16) mg/dL Creatinine 1.05 (0.5-1.4) mg/dL Estim Creat Clear Calc 69.8 Estimated GFR > 60 Random Glucose 96 (60-115) mg/dL Uric Acid 5.2 (3.4-7.0) mg/dL Calcium 9.5 (8.4-10.2) mg/dL C-Reactive Protein 4.14 H (< or = 0.50) mg/dL Influenza Type A (PCR) (Negative) Influenza Type B (PCR) (Negative) RSV RNA Qual (PCR) (Negative) SARS-CoV-2 RNA (RT-PCR) (Negative) 12/12/22 Range/Units 17:41 WBC (4.8-10.8) X10*3/uL RBC (4.60-5.80) X10*6/uL Hgb (14.0-18.0) g/dl Hct (42.0-52.0) % MCV (80.0-98.0) fL MCH (27.0-33.0) pg MCHC (31.0-36.0) g/dl RDW (11.0-16.0) % Plt Count (160-400) X10*3/uL MPV (9.4-12.4) fL Immature Gran % (Auto) (0.0-0.4) % Neut % (Auto) (45-73) % Lymph % (Auto) (20-40) % Labette % (Auto) (2-11) % Eos % (Auto) (0-4) % Baso % (Auto) (0-2) % Lymph # (Auto) (1.2-4.9) X10*3/uL Labette # (Auto) (0.1-1.2) X10*3/uL Eos # (Auto) (0.0-0.4) X10*3/uL Baso # (Auto) (0.0-0.2) X10*3/uL Abs Immat Gran (auto) (0.00-0.03) X10*3/uL Absolute Neuts (auto) (2.0-8.3) x10*3/uL Absolute Nucleated RBC (0.0-0.012) X10*3/uL Nucleated RBC % (auto) (0.0-0.2) /100WBC ESR (0-15) MM/HR Sodium (135-145) mmol/L Potassium (3.3-5.1) mmol/L Chloride (96-108) mmol/L Carbon Dioxide (22-29) mmol/L Anion Gap (12-20) BUN (9-16) mg/dL Creatinine (0.5-1.4) mg/dL Estim Creat Clear Calc Estimated GFR Random Glucose (60-115) mg/dL Uric Acid (3.4-7.0) mg/dL Calcium (8.4-10.2) mg/dL C-Reactive Protein (< or = 0.50) mg/dL Influenza Type A (PCR) NEGATIVE (Negative) Influenza Type B (PCR) NEGATIVE (Negative) RSV RNA Qual (PCR) NEGATIVE (Negative) SARS-CoV-2 RNA (RT-PCR) NEGATIVE (Negative) <SIMBA Ayala - Last Filed: 12/12/22 14:45> Lab Results 12/12/22 12/12/22 12/12/22 Range/Units 16:30 16:30 16:30 WBC 8.2 (4.8-10.8) X10*3/uL RBC 4.76 (4.60-5.80) X10*6/uL Hgb 14.3 (14.0-18.0) g/dl Hct 42.5 (42.0-52.0) % MCV 89.3 (80.0-98.0) fL MCH 30.0 (27.0-33.0) pg MCHC 33.6 (31.0-36.0) g/dl RDW 13.6 (11.0-16.0) % Plt Count 251 (160-400) X10*3/uL MPV 10.1 (9.4-12.4) fL Immature Gran % (Auto) 1.3 H (0.0-0.4) % Neut % (Auto) 75.8 H (45-73) % Lymph % (Auto) 11.9 L (20-40) % Labette % (Auto) 10.0 (2-11) % Eos % (Auto) 0.6 (0-4) % Baso % (Auto) 0.4 (0-2) % Lymph # (Auto) 1.0 L (1.2-4.9) X10*3/uL Labette # (Auto) 0.8 (0.1-1.2) X10*3/uL Eos # (Auto) 0.1 (0.0-0.4) X10*3/uL Baso # (Auto) 0.0 (0.0-0.2) X10*3/uL Abs Immat Gran (auto) 0.11 H (0.00-0.03) X10*3/uL Absolute Neuts (auto) 6.2 (2.0-8.3) x10*3/uL Absolute Nucleated RBC 0.000 (0.0-0.012) X10*3/uL Nucleated RBC % (auto) 0.0 (0.0-0.2) /100WBC ESR 16 H (0-15) MM/HR Sodium 141 (135-145) mmol/L Potassium 3.9 (3.3-5.1) mmol/L Chloride 103 (96-108) mmol/L Carbon Dioxide 27 (22-29) mmol/L Anion Gap 15 (12-20) BUN 16 (9-16) mg/dL Creatinine 1.05 (0.5-1.4) mg/dL Estim Creat Clear Calc 69.8 Estimated GFR > 60 Random Glucose 96 (60-115) mg/dL Uric Acid 5.2 (3.4-7.0) mg/dL Calcium 9.5 (8.4-10.2) mg/dL C-Reactive Protein 4.14 H (< or = 0.50) mg/dL Influenza Type A (PCR) (Negative) Influenza Type B (PCR) (Negative) RSV RNA Qual (PCR) (Negative) SARS-CoV-2 RNA (RT-PCR) (Negative) 12/12/22 Range/Units 17:41 WBC (4.8-10.8) X10*3/uL RBC (4.60-5.80) X10*6/uL Hgb (14.0-18.0) g/dl Hct (42.0-52.0) % MCV (80.0-98.0) fL MCH (27.0-33.0) pg MCHC (31.0-36.0) g/dl RDW (11.0-16.0) % Plt Count (160-400) X10*3/uL MPV (9.4-12.4) fL Immature Gran % (Auto) (0.0-0.4) % Neut % (Auto) (45-73) % Lymph % (Auto) (20-40) % Labette % (Auto) (2-11) % Eos % (Auto) (0-4) % Baso % (Auto) (0-2) % Lymph # (Auto) (1.2-4.9) X10*3/uL Labette # (Auto) (0.1-1.2) X10*3/uL Eos # (Auto) (0.0-0.4) X10*3/uL Baso # (Auto) (0.0-0.2) X10*3/uL Abs Immat Gran (auto) (0.00-0.03) X10*3/uL Absolute Neuts (auto) (2.0-8.3) x10*3/uL Absolute Nucleated RBC (0.0-0.012) X10*3/uL Nucleated RBC % (auto) (0.0-0.2) /100WBC ESR (0-15) MM/HR Sodium (135-145) mmol/L Potassium (3.3-5.1) mmol/L Chloride (96-108) mmol/L Carbon Dioxide (22-29) mmol/L Anion Gap (12-20) BUN (9-16) mg/dL Creatinine (0.5-1.4) mg/dL Estim Creat Clear Calc Estimated GFR Random Glucose (60-115) mg/dL Uric Acid (3.4-7.0) mg/dL Calcium (8.4-10.2) mg/dL C-Reactive Protein (< or = 0.50) mg/dL Influenza Type A (PCR) NEGATIVE (Negative) Influenza Type B (PCR) NEGATIVE (Negative) RSV RNA Qual (PCR) NEGATIVE (Negative) SARS-CoV-2 RNA (RT-PCR) NEGATIVE (Negative) <SIMBA Yeh - Last Filed: 12/12/22 19:20> Independent Interpretation I performed an independent interpretation of an: EKG (EKG normal sinus rhythm with ventricular rate of 98 with left atrial enlargement with LVH nonspecific T-wave abnormalities no acute ischemic change are noted.), Plain X-Ray and Ultrasound <SIMBA Yeh - Last Filed: 12/12/22 19:20> Interpretation: CXR FINDINGS: No significant abnormality is noted involving the heart, lungs, mediastinum, bony thorax or soft tissues. Bibasilar infiltrates have cleared since the prior study. XR/XR chest 1V IMPRESSION: Unremarkable examination. CLINICAL INFORMATION:? Right foot pain and calf tenderness COMPARISON:? None TECHNIQUE: Ultrasound of the deep veins is performed from the hip to the calf with compression sonography and color and pulse Doppler assessment. Spectral analysis with color-flow imaging is performed. FINDINGS: There is normal venous compression and respiratory variation and augmented flow. The visualized common femoral vein, superficial femoral vein, profunda femoral vein, popliteal vein, and the trifurcation region shows no evidence of deep venous thrombosis. ? There is no significant popliteal fossa cyst. If the patient's symptoms persist, followup ultrasound in 5 days 7 days might be of value to exclude proximal propagation from a non-visualized calf vein. US/US venous duplex LE RT IMPRESSION: No DVT demonstrated in the right lower extremity. <SIMBA Yeh - Last Filed: 12/12/22 19:20> Radiology Impression Discussion of test interpretation with radiology: I have reviewed the radiologist's reading. <SIMBA Yeh - Last Filed: 12/12/22 19:20> External Record Review External record reviewed: Inpatient record, Office record, Outpatient record, Prior outpatient labs, Prior outpatient radiology, Primary care record and Outside ED record <SIMBA Yeh - Last Filed: 12/12/22 19:20> Prescription Management I considered prescription management with: Pain Medication and Antibiotic <SIMBA Yeh Last Filed: 12/12/22 19:20> Chronic Conditions Patient?s care impacted by: Hypertension and Other (Gout) <SIMBA Yeh Last Filed: 12/12/22 19:20> Critical Care Time Critical Care Time Critical Care Time: Yes <SIMBA Yeh - Last Filed: 12/12/22 19:20> Total Critical Care Time: 60 <SIMBA Yeh - Last Filed: 12/12/22 19:20> Attestation: I personally attest to this time spent taking care of the patient <SIMBA Yeh Last Filed: 12/12/22 19:20> Discharge Plan Discharge Clinical Impression: Gout attack <SIMBA Ayala Last Filed: 12/12/22 14:45> Patient Disposition: Home, Self-Care <SIMBA Ayala Last Filed: 12/12/22 14:45> Instructions: Low Purine Diet (ED), Gout (ED) <SIMBA Ayala Last Filed: 12/12/22 14:45> Prescriptions: New indomethacin 50 mg capsule 50 mg PO Q8H 5 Days Qty: 15 0RF Rx Instructions: administer with food or milk prednisone 20 mg tablet 40 mg PO DAILY 5 Days Qty: 10 0RF oxycodone 5 mg tablet 5 mg PO Q6H PRN (Reason: pain) Qty: 14 0RF Rx Instructions: Partial Fill upon patient request. doxycycline monohydrate 100 mg tablet 100 mg PO BID 7 Days Qty: 14 0RF cephalexin 500 mg capsule 500 mg PO Q6H 7 Days Qty: 28 0RF No Action cholecalciferol (vitamin D3) 50 mcg (2,000 unit) capsule 50 mcg PO DAILY tizanidine 2 mg tablet 2 mg PO Q6-8H PRN enalapril maleate 10 mg tablet 10 mg PO DAILY buspirone 10 mg tablet 10 mg PO BID simvastatin 40 mg tablet 40 mg PO BEDTIME gabapentin 300 mg capsule 300 mg PO TID mirtazapine 15 mg tablet 15 mg PO BEDTIME trazodone 50 mg tablet 50 mg PO BEDTIME PRN cyclobenzaprine 10 mg tablet 10 mg PO TID PRN <SIMBA Ayala - Last Filed: 12/12/22 14:45> Referrals: Elsie Arceo MD [Primary Care Provider] - 2 days <SIMBA Ayala - Last Filed: 12/12/22 14:45> Print Language: Scottish <SIMBA Ayala - Last Filed: 12/12/22 14:45>
[2022-12-12 16:40] LABS: MANUAL DIFF FLAG NO
[2022-12-12 16:44] LABS: Basophils Percent Auto 0.4 % (0-2); Eosinophils Absolute Auto 0.1 X10*3/uL (0.0-0.4); Eosinophils Percent Auto 0.6 % (0-4); Hematocrit 42.5 % (42.0-52.0); Hemoglobin 14.3 g/dl (14.0-18.0); Imm Gran Abs Auto 0.11 X10*3/uL (0.00-0.03); Imm Gran Pct Auto 1.3 % (0.0-0.4); Lymphocytes Percent Auto 11.9 % (20-40); Mean Corpuscular HGB Conc 33.6 g/dl (31.0-36.0); Mean Corpuscular Volume 89.3 fL (80.0-98.0); Mean Platelet Volume 10.1 fL (9.4-12.4); Monocytes Absolute Auto 0.8 X10*3/uL (0.1-1.2); Neutrophils Absolute Auto 6.2 x10*3/uL (2.0-8.3); Neutrophils Percent Auto 75.8 % (45-73); Platelet Count 251 X10*3/uL (160-400); Red Blood Count 4.76 X10*6/uL (4.60-5.80); Red Cell Distribution Width 13.6 % (11.0-16.0); White Blood Count 8.2 X10*3/uL (4.8-10.8)
[2022-12-12 17:00] LABS: Anion Gap 15 (12-20); Blood Urea Nitrogen 16 mg/dL (9-16); C Reactive Protein 4.14 mg/dL (< or = 0.50); Calcium 9.5 mg/dL (8.4-10.2); Carbon Dioxide 27 mmol/L (22-29); Chloride 103 mmol/L (96-108); Creatinine Clr Calc Pharmacy 69.8; Estimated Glomerular Filt Rate > 60; Glucose Random 96 mg/dL (60-115); Potassium 3.9 mmol/L (3.3-5.1); Sodium 141 mmol/L (135-145); Uric Acid 5.2 mg/dL (3.4-7.0)
--- NOTE | 2022-12-12 17:17 | ECG_ITS ---
Test Reason : tachycardia Blood Pressure : / mmHG Vent. Rate : 098 BPM Atrial Rate : 098 BPM P-R Int : 172 ms QRS Dur : 080 ms QT Int : 296 ms P-R-T Axes : 059 057 086 degrees QTc Int : 377 ms Normal sinus rhythm Possible Left atrial enlargement Minimal voltage criteria for LVH, may be normal variant ( Sokolow-Villarreal ) Nonspecific T wave abnormality Abnormal ECG When compared with ECG of 30-DEC-2020 07:17, No significant change was found Referred By: Shanice Morales Electronically Signed By:ALEM MARTI
[2022-12-12 17:22] LABS: Erythrocyte Sedimentation Rate 16 MM/HR (0-15)
--- NOTE | 2022-12-12 17:33 | PC.NURSE ---
Called and spoke with pharmacy to bring Indocin 50mg to [facility] for administration. None available in Pyxis. Will administer upon receipt from pharmacy.
[2022-12-12] MEDS: oxyCODONE HCl Immed Release 5 MG TABLET PO ×2 (17:36→19:22)
[2022-12-12] MEDS: Acetaminophen 325 MG TABLET 975 MG PO (17:36)
[2022-12-12] MEDS: Indomethacin 25 MG CAPSULE 50 MG PO (17:43)
--- NOTE | 2022-12-12 17:59 | PC.NURSE ---
During pain assessment, accidentally documented left leg instead of right leg . Entry error by this RN.
[2022-12-12 18:41] LABS: Influenza A PCR NEGATIVE (Negative); Influenza B PCR NEGATIVE (Negative); Resp Syncy Virus RNA Qual PCR NEGATIVE (Negative); SARS COV2 PCR INHOUSE NEGATIVE (Negative)
== END 2022-12-12 19:43 | disposition home or self-care (01) ==
PROVIDERS: Physician Assistant; Physician Assistant Medical; Emergency Provider Emergency Medicine Emergency Medical Services; PCP Internal Medicine
DX: M10.9 Gout, unspecified (principal); R00.0 Tachycardia, unspecified; R60.0 Localized edema; M79.671 Pain in right foot; Z20.822 Contact with and (suspected) exposure to COVID-19; Z20.828 Contact with and (suspected) exposure to other viral communicable diseases; Z79.899 Other long term (current) drug therapy
CPT/HCPCS: 0241U; 36415; 71045; 73630; 80048; 84550; 85025; 85652; 86140; 93005; 93971; 99283; 99284

== ENCOUNTER 2023-02-13 02:36 | Emergency (ER) | payer OTHER, SELFPAY ==
--- NOTE | ~2023-02-13 | XR_ITS ---
EXAMINATION: XR KNEE, RIGHT CLINICAL INFORMATION: Effusion COMPARISON: 08/18/2019 TECHNIQUE: Two views of the right knee. FINDINGS: No fracture or subluxation. Compartmental joint spaces are maintained. Small tricompartmental marginal osteophytes. No joint effusion. The soft tissues are unremarkable. XR/XR knee RT 2V IMPRESSION: Mild tricompartmental degenerative changes. No joint effusion.
[2023-02-13 02:43] VITALS: BP 144/98; BP 149/100; PULSE 103; PULSE 92; RESP 14; TEMP 37.2; O2SAT 97; O2SAT 98; BMI 28.3
--- NOTE | 2023-02-13 03:08 | ED_ITS ---
HPI - Extremity Problem General Chief complaint: Extremity Injury, Lower Stated complaint: rt knee pain Time Seen by Provider: 02/13/23 02:42 Source: patient Mode of arrival: EMS Limitations: no limitations History of Present Illness HPI Narrative: Patient with history of arthritis was bending his right knee yesterday exercising noticed increased swelling after that with swelling in the popliteal area increases pain on ambulation no direct trauma such Related Data Home Medications Medication Instructions Recorded Confirmed buspirone 10 mg tablet 10 mg PO BID 01/05/21 04/04/22 cholecalciferol (vitamin D3) 50 50 mcg PO DAILY 01/05/21 04/04/22 mcg (2,000 unit) capsule enalapril maleate 10 mg tablet 10 mg PO DAILY 01/05/21 04/04/22 simvastatin 40 mg tablet 40 mg PO BEDTIME 01/05/21 04/04/22 tizanidine 2 mg tablet 2 mg PO Q6-8H PRN 01/05/21 04/04/22 gabapentin 300 mg capsule 300 mg PO TID 08/18/21 04/04/22 mirtazapine 15 mg tablet 15 mg PO BEDTIME 04/04/22 04/04/22 trazodone 50 mg tablet 50 mg PO BEDTIME PRN 04/04/22 04/04/22 cyclobenzaprine 10 mg tablet 10 mg PO TID PRN 06/14/22 Previous Rx's Medication Instructions Recorded cephalexin 500 mg capsule 500 mg PO Q6H 7 days #28 caps 12/12/22 doxycycline monohydrate 100 mg 100 mg PO BID 7 days #14 tabs 12/12/22 tablet indomethacin 50 mg capsule 50 mg PO Q8H 5 days #15 caps 12/12/22 oxycodone 5 mg tablet 5 mg PO Q6H PRN pain #14 tabs 12/12/22 prednisone 20 mg tablet 40 mg PO DAILY inflammation 5 days 12/12/22 #10 tabs ibuprofen 600 mg tablet 600 mg PO Q6H PRN fever or pain 02/13/23 #30 tabs oxycodone-acetaminophen 5 mg-325 1 tab PO Q6H PRN pain #20 tabs 02/13/23 mg tablet (Percocet) Allergies Allergy/AdvReac Type Severity Reaction Status Date / Time No Known Allergies Allergy Verified 07/19/22 16:09 [No Known Allergies*] Review of Systems Review of Systems: Yes all other systems are reviewed and are negative [facility] Past Medical History Medical History Cocaine abuse in remission Essential hypertension Myalgia, unspecified site Surgical History History of left knee surgery Family History Family History Father No problems noted. Mother Diabetes Rheumatoid arthritis Social History Social History Patient Tobacco Use Status: Never used Tobacco Smoked in Last 30 Days: No Use of substances other than those prescribed or required for medical reasons: No Advance Directives: No Physical Exam Vital Signs: Vital Signs: Last Vital Signs Temp 98.7 F 02/13/23 03:51 Pulse 87 02/13/23 03:51 Resp 14 02/13/23 03:51 BP 144/92 H 02/13/23 03:51 Pulse Ox 97 02/13/23 03:51 O2 Del Method Room Air 02/13/23 03:51 BMI result Body Mass Index 28.3 Extrem: Knee images: 1. Swelling in the popliteal area suggestive of Layne's cyst with moderate joint effusion limited joint movement because of pain no signs of infection Medications Administered Discontinued Medications Generic Name Dose Route Start Last Admin Trade Name Freq PRN Reason Stop Dose Admin Oxycodone HCl 10 mg 02/13/23 03:18 02/13/23 03:22 Oxycodone Hcl Immed Release 5 Mg Tablet PO 02/13/23 03:19 10 mg ONCE ONE Administration Medical Decision Making Medical Decision Making [facility] Narrative: Patient with right knee effusion with history of osteoarthritis with popliteal fullness bedside ultrasound done which confirms small Layne cyst. With joint effusion deejay wrap was applied patient has crutches will discharge patient home x-ray negative for fracture Discharge Plan Discharge Clinical Impression: Layne's cyst of knee Patient Disposition: Home, Self-Care Instructions: Bakers Cyst (ED) Additional Instructions: Wear Deejay wrap for support Partial weight-bearing, walk with crutches Pain medication as prescribed Follow-up with orthopedics if pain continues Prescriptions: New oxycodone-acetaminophen [Percocet] 5-325 mg tablet 1 tab PO Q6H PRN (Reason: pain) Qty: 20 0RF Rx Instructions: Partial Fill upon patient request. ibuprofen 600 mg tablet 600 mg PO Q6H PRN (Reason: fever or pain) Qty: 30 0RF No Action indomethacin 50 mg capsule 50 mg PO Q8H 5 Days Qty: 15 0RF Rx Instructions: administer with food or milk prednisone 20 mg tablet 40 mg PO DAILY 5 Days Qty: 10 0RF oxycodone 5 mg tablet 5 mg PO Q6H PRN (Reason: pain) Qty: 14 0RF Rx Instructions: Partial Fill upon patient request. doxycycline monohydrate 100 mg tablet 100 mg PO BID 7 Days Qty: 14 0RF cephalexin 500 mg capsule 500 mg PO Q6H 7 Days Qty: 28 0RF cholecalciferol (vitamin D3) 50 mcg (2,000 unit) capsule 50 mcg PO DAILY tizanidine 2 mg tablet 2 mg PO Q6-8H PRN enalapril maleate 10 mg tablet 10 mg PO DAILY buspirone 10 mg tablet 10 mg PO BID simvastatin 40 mg tablet 40 mg PO BEDTIME gabapentin 300 mg capsule 300 mg PO TID mirtazapine 15 mg tablet 15 mg PO BEDTIME trazodone 50 mg tablet 50 mg PO BEDTIME PRN cyclobenzaprine 10 mg tablet 10 mg PO TID PRN Interventions: ED Discharge Assessment Last Done: 02/13/23 04:18 Discharge Date/Time: 02/13/23 04:18
[2023-02-13] MEDS: oxyCODONE HCl Immed Release 5 MG TABLET 10 MG PO (03:22)
--- NOTE | 2023-02-13 03:23 | PC.NURSE ---
Pt aox3. Medicated as ordered. Tolerated well.
[2023-02-13 03:51] VITALS: BP 144/92; PULSE 87; RESP 14; TEMP 37.1; O2SAT 97
--- NOTE | 2023-02-13 03:55 | MHC.EDTECH ---
PATIENT WAS AMBULATED BY STAFF.STAFF REPORTED PATIENT DID WELL WITH JARRET WRAP ON RIGHT KNEE.
--- NOTE | 2023-02-13 04:16 | PC.NURSE ---
Discharge instructions reviewed with pt. Pt verbalizes understanding.
== END 2023-02-13 04:18 | disposition home or self-care (01) ==
PROVIDERS: Emergency Provider Internal Medicine; PCP Internal Medicine
DX: M71.21 Synovial cyst of popliteal space [Baker], right knee (principal); M25.561 Pain in right knee; I10 Essential (primary) hypertension; Z79.02 Long term (current) use of antithrombotics/antiplatelets; Z79.899 Other long term (current) drug therapy
CPT/HCPCS: 73560; 99283; 99284

== ENCOUNTER → 2023-04-13 11:03 | Outpatient (BNVA) | payer OTHER, SELFPAY | PROVIDERS: PCP Internal Medicine; Visit Provider Student in an Organized Health Care Education/Training Program | DX: M1A.0710 Idiopathic chronic gout, right ankle and foot, without tophus (tophi) (principal); Z79.899 Other long term (current) drug therapy | CPT/HCPCS: 99202 ==

== ENCOUNTER 2023-09-09 19:04 | Emergency (ER) | payer OTHER, SELFPAY ==
[2023-09-09 19:25] VITALS: BMI 28.3
--- NOTE | 2023-09-09 19:27 | ED_ITS ---
HPI - General Adult General Chief complaint: Extremity Injury, Lower Stated complaint: LEG PAIN. GOUT FLARE UP Time Seen by Provider: 09/09/23 19:28 Source: patient and EMS Mode of arrival: EMS Limitations: no limitations History of Present Illness HPI narrative: Patient is a 63-year-old male presenting to the emergency department with complaint of right knee which began this morning. Reports history of gout and states pain feels similar. Denies fall or other trauma. Denies fevers. Denies calf pain or swelling. Denies any numbness or tingling to lower leg. Did not take any OTC medications prior to arrival. complaint: right knee pain Onset (ago): hour(s) Location: right and lower extremity Radiation: distal Severity: severe Quality: aching Pain Consistency: constant Relieving factors: rest Exacerbating factors: movement Associated symptoms: denies other symptoms Treatments prior to arrival: none Related Data Home Medications Medication Instructions Recorded Confirmed buspirone 10 mg tablet 10 mg PO BID 01/05/21 04/13/23 enalapril maleate 10 mg tablet 10 mg PO DAILY 01/05/21 04/13/23 simvastatin 40 mg tablet 40 mg PO BEDTIME 01/05/21 04/13/23 mirtazapine 15 mg tablet 15 mg PO BEDTIME 04/04/22 04/13/23 trazodone 50 mg tablet 50 mg PO BEDTIME PRN 04/04/22 04/13/23 allopurinol 300 mg tablet 300 mg PO DAILY 04/13/23 04/13/23 Previous Rx's Medication Instructions Recorded oxycodone 5 mg tablet 5 mg PO Q6H PRN pain #14 tabs 12/12/22 oxycodone-acetaminophen 5 mg-325 1 tab PO Q6H PRN pain #20 tabs 02/13/23 mg tablet (Percocet) prednisone 20 mg tablet 40 mg (2 x 20 mg) PO DAILY #10 tabs 09/09/23 Allergies Allergy/AdvReac Type Severity Reaction Status Date / Time No Known Allergies Allergy Verified 04/13/23 11:15 [No Known Allergies*] Review of Systems Review of Systems: As per MDM. Yes all other systems are reviewed and are negative Constitutional: Constitutional: Reports as per HPI [facility] Past Medical History Medical History Cocaine abuse in remission Essential hypertension Myalgia, unspecified site Surgical History History of left knee surgery Family History Family History Father No problems noted. Mother Diabetes Rheumatoid arthritis Social History Social History Household Members: None Alcohol intake: current Alcohol intake frequency: a few times a month Patient Tobacco Use Status: Never used Tobacco Current occupational status: disabled Physical Exam ED Vital Signs: BMI result Body Mass Index 28.3 Const General: cooperative, healthy appearing and no acute distress Orientation/consciousness: oriented to person, oriented to place, oriented to time and patient oriented x3 Limitations: no limitations HENMT Head: Yes normocephalic and Yes atraumatic Ears: external ears normal General nose exam: Normal external nose present Face and sinus: Yes face symmetric Mouth: oropharynx normal and moist mucous membranes Throat: Yes uvula midline Eyes Pupils: Equal, round and reactive pupils present Neck Neck: Yes normal visual inspection and Yes supple Resp Effort & Inspection: normal respiratory effort and able to speak in complete sentences Auscultation: clear to auscultation bilaterally Cardio Rate: regular rate Rhythm: regular rhythm Heart sounds: S1 normal heart sound present and S2 normal heart sound present GI Palpation (GI): Soft to palpation and nontender Auscultation: normoactive bowel sounds General: Yes no CVA tenderness Back/Spine/Pelvis Back: no CVA tenderness Skin General skin exam: elasticity normal and turgor normal Neuro General: oriented to person, oriented to place, oriented to time, patient oriented x3, moves all extremities, no focal motor deficits and CN's II-XI intact bilaterally Cranial nerves: Yes Equal, round and reactive pupils present Cognition (Neuro): normal cognition Extrem General: Yes full ROM, Yes no pedal edema and Yes no calf tenderness Right lower extremity: knee Details: normal to inspection, tenderness Location: of the pre-patellar area, swelling Location: of the pre-patellar area (mild), normal ROM and knee ligament exam normal; no ecchymosis and no unusual warmth, lower leg Details: normal to inspection and no edema; no unusual warmth and foot Details: vascular exam Details: dorsalis pedis pulse present, posterior tibial pulse present and normal capillary refill Psych Mental Status: mental status grossly normal Affect: normal affect Thought process: Normal thought process present Medical Decision Making Medical Decision Making [facility] Narrative: Patient is a 63-year-old male presenting to the emergency department with complaint of right knee which began this morning. On exam patient is awake, A+Ox3, VS WNL, afebrile, normal neurological exam without focal deficits, physical exam findings as above. Given reported symptoms and physical exam findings, initial differential includes gout flare, osteoarthritis, strain, sprain. Do not feel imaging is indicated at this time as patient has full ROM, no erythema or ecchymosis, and denies fall or other trauma. Will prescribe a short course of prednisone and advised patient to follow up with his PCP. Return precautions discussed. Patient verbalized understanding of and agreement with plan. Differential Diagnosis Differential Diagnoses: The differential diagnosis associated with the presentation includes As per MDM. External Record Review External record reviewed: Inpatient record, Office record and Outpatient record Tests considered The following testing was considered but not selected: Considered x-ray but no indicated as patient denies trauma Prescription Management I considered prescription management with: Other Discharge Plan Discharge Clinical Impression: Gout Patient Disposition: Home, Self-Care Instructions: Gout (ED) Additional Instructions: You were evaluated in the emergency department today for right knee pain which is likely related to a gout flare. You are being prescribed a short course of steroids for this. DO NOT TAKE ANY NSAIDs (ibuprofen, naproxen, etc) WHILE TAKING THE PREDNISONE. Once you have completed the course of steroids, you may resume the use of NSAIDs. Please call your primary care provider in the morning. Return to the emergency department if you develop worsening pain, new weakness, numbness, tingling, or change of color to your leg. Prescriptions: New prednisone 20 mg tablet 40 mg PO DAILY Qty: 10 0RF No Action oxycodone 5 mg tablet 5 mg PO Q6H PRN (Reason: pain) Qty: 14 0RF Rx Instructions: Partial Fill upon patient request. oxycodone-acetaminophen [Percocet] 5-325 mg tablet 1 tab PO Q6H PRN (Reason: pain) Qty: 20 0RF Rx Instructions: Partial Fill upon patient request. enalapril maleate 10 mg tablet 10 mg PO DAILY buspirone 10 mg tablet 10 mg PO BID simvastatin 40 mg tablet 40 mg PO BEDTIME mirtazapine 15 mg tablet 15 mg PO BEDTIME trazodone 50 mg tablet 50 mg PO BEDTIME PRN allopurinol 300 mg tablet 300 mg PO DAILY
== END 2023-09-09 19:58 | disposition home or self-care (01) ==
PROVIDERS: Emergency Provider Internal Medicine
DX: M10.061 Idiopathic gout, right knee (principal); Z79.899 Other long term (current) drug therapy
CPT/HCPCS: 99282; 99283

== ENCOUNTER 2023-11-25 18:43 | Emergency (ER) | payer OTHER, SELFPAY ==
[2023-11-25 18:54] VITALS: PULSE 112; O2SAT 98
[2023-11-25 19:21] VITALS: BP 132/72; PULSE 90; RESP 14; TEMP 36.2; O2SAT 95; BMI 30.9
--- NOTE | 2023-11-25 20:22 | ED.ALCOHOL ---
HPI - Alcohol General Chief Complaint: ETOH/Substance Use Stated Complaint: ETOH Time Seen by Provider: 11/25/23 19:00 Source: patient, EMS and interpreter and translator Mode of arrival: EMS History of Present Illness HPI narrative: 63-year-old male brought in by EMS after being found on [facility] by the police department. Patient states he only had a little bit of alcohol today . He reports that he lives at home by himself but is unable to tell me his address at this time. He denies feeling depressed or suicidal. Related Data Home Medications Medication Instructions Recorded Confirmed buspirone 10 mg tablet 10 mg PO BID 01/05/21 04/13/23 enalapril maleate 10 mg tablet 10 mg PO DAILY 01/05/21 04/13/23 simvastatin 40 mg tablet 40 mg PO BEDTIME 01/05/21 04/13/23 mirtazapine 15 mg tablet 15 mg PO BEDTIME 04/04/22 04/13/23 trazodone 50 mg tablet 50 mg PO BEDTIME PRN 04/04/22 04/13/23 allopurinol 300 mg tablet 300 mg PO DAILY 04/13/23 04/13/23 Previous Rx's Medication Instructions Recorded oxycodone 5 mg tablet 5 mg PO Q6H PRN pain #14 tabs 12/12/22 oxycodone-acetaminophen 5 mg-325 1 tab PO Q6H PRN pain #20 tabs 02/13/23 mg tablet (Percocet) prednisone 20 mg tablet 40 mg (2 x 20 mg) PO DAILY #10 tabs 09/09/23 Allergies Allergy/AdvReac Type Severity Reaction Status Date / Time No Known Allergies Allergy Verified 04/13/23 11:15 [No Known Allergies*] Review of Systems Review of Systems: Pertinent positives and negatives as stated in HPI PMFSH Past Medical History Source: nursing notes reviewed Onset Date is defined in the Problem List Problems that require an onset date and time if occurred within 24 hrs of arrival to the ED Aortic Dissection and Rupture; Neurologic impairment; Cardiopulmonary Arrest; Endotracheal Intubation; Insertion or Replacement of Mechanical Circulatory Assist Device Medical History Cocaine abuse in remission Essential hypertension Myalgia, unspecified site Surgical History History of left knee surgery Family History Family History Father No problems noted. Mother Diabetes Rheumatoid arthritis Social History Social History Household Members: None Alcohol intake: current Alcohol intake frequency: 3 or more drinks per day Patient Tobacco Use Status: Never used Tobacco Smoked in Last 30 Days: No Use of substances other than those prescribed or required for medical reasons: No Advance Directives: No Advance Directives Information Provided: No Current occupational status: disabled Physical Exam ED Vital Signs: Vital Signs - 24 hr 11/25/23 19:21 Temperature 97.1 F Pulse Rate 90 Respiratory Rate 14 Blood Pressure 132/72 Pulse Oximetry 95 Oxygen Delivery Method Room Air BMI result Body Mass Index 30.9 VITAL SIGNS: Reviewed. GENERAL: Well developed, well nourished, in no acute distress, clinically intoxicated. HEAD: Normocephalic/atraumatic EYES: PERRLA, EOMI EARS: Ext canals without abnormality NOSE: Nares patent bilateral OROPHARYNX: no oral lesions noted, posterior pharynx clear NECK: Supple, no adenopathy LUNGS: Normal breath sounds. No adventitious sounds or accessory muscle use. SpO2<95> CARDIOVASCULAR: Regular rate and rhythm without noted murmurs ABDOMEN: Soft, non-tender, non-distended with bowel sounds. MUSCULOSKELETAL: No tenderness, deformities, or effusions noted on gross inspection. EXTREMITIES: No cyanosis, clubbing or edema. SKIN: Inspection of the skin reveals no rashes NEUROLOGIC: Alert and oriented x 2. Strength and sensation to light touch were grossly intact x 4. Medical Decision Making Medical Decision Making [facility] Narrative: 63-year-old male with history and clinical presentation consistent with alcohol intoxication. No evidence in history or clinical exam to suggest any falls and patient is otherwise placed on a CIWA and will be observed until clinically sober. Differential Diagnosis Differential Diagnoses: The differential diagnosis associated with the presentation includes Please see the discussion above Admission/Observation Consideration of admission/observation: Escalation of care including admission/observation considered Please see the discussion above Discharge Plan Discharge Clinical Impression: Alcoholic intoxication Patient Disposition: Still a Patient Prescriptions: No Action oxycodone 5 mg tablet 5 mg PO Q6H PRN (Reason: pain) Qty: 14 0RF Rx Instructions: Partial Fill upon patient request. prednisone 20 mg tablet 40 mg PO DAILY Qty: 10 0RF oxycodone-acetaminophen [Percocet] 5-325 mg tablet 1 tab PO Q6H PRN (Reason: pain) Qty: 20 0RF Rx Instructions: Partial Fill upon patient request. enalapril maleate 10 mg tablet 10 mg PO DAILY buspirone 10 mg tablet 10 mg PO BID simvastatin 40 mg tablet 40 mg PO BEDTIME mirtazapine 15 mg tablet 15 mg PO BEDTIME trazodone 50 mg tablet 50 mg PO BEDTIME PRN allopurinol 300 mg tablet 300 mg PO DAILY
[2023-11-25 22:50] VITALS: BP 138/98; PULSE 95; RESP 14; TEMP 36.5; O2SAT 100
== END 2023-11-25 22:52 | disposition home or self-care (01) ==
PROVIDERS: Emergency Provider Student in an Organized Health Care Education/Training Program
DX: F10.129 Alcohol abuse with intoxication, unspecified (principal); I10 Essential (primary) hypertension; Z79.899 Other long term (current) drug therapy
CPT/HCPCS: 99284

== ENCOUNTER 2024-08-05 08:35 | Outpatient (REF) | payer OTHER, SELFPAY ==
[2024-08-05 12:08] LABS: Alanine Aminotransferase 27 U/L (0-40); Albumin Level 4.5 g/dL (3.5-5.0); Alkaline Phosphatase 88 U/L (39-117); Aspartate Amino Transferase 25 U/L (5-37); Bilirubin Direct 0.2 mg/dL (0.0-0.5); Bilirubin Total 0.4 mg/dL (0.0-1.0); Cholesterol 179 mg/dL (<200); HDL Cholesterol 77 mg/dL (>40); LDL Cholesterol Calculated 77 mg/dL (<100); Total Protein 7.8 g/dL (6.5-8.0); Triglycerides 129 mg/dL (<150)
[2024-08-05 12:17] LABS: HBS Num1 8.01 mIU/mL (0-7.99); HBc Num1 4.77 S/CO (0.00-0.79); HBsAGNum1 0.23 S/CO (0.00-0.99); HIV AB/AG Nonreactive (Nonreactive); HIV Num 1 0.06 S/CO (0.00-0.99); Hepatitis A Antibody IgM 0.36 Index (0-0.79); Hepatitis B Surface Antigen Negative (Negative); Syphilis Screen Nonreactive (Nonreactive); ~HepC Num1 0.09 S/CO (0.00-0.79); ~Hepatitis A Antibody IgM Nonreactive (Nonreactive); ~Hepatitis C Antibody Nonreactive (Nonreactive)
[2024-08-05 12:20] LABS: TSH reflex Free T4 4.34 uIU/mL (0.32-4.0); Vitamin D 25-OH Total 32.6 ng/mL (>30)
[2024-08-05 12:57] LABS: Free T4 (Free Thyroxine) 0.82 ng/dL (0.71-1.85); Uric Acid 5.3 mg/dL (3.4-7.0)
[2024-08-05 14:40] LABS: Reflex LDLD? No
[2024-08-06 07:38] LABS: HBS Num2 7.76 mIU/mL (0-7.99); HBS Num3 8.92 mIU/mL (0-7.99); HBc Num2 4.96 S/CO; HBc Num3 4.96 S/CO; Hepatitis B Core Antibody Reactive (Nonreactive); ~Hepatitis B Surface Antibody GRAYZONE (Nonreactive)
[2024-08-08 01:54] LABS: Hepatitis B Core Antibody IgM NON-REACTIVE (NON-REACTIVE)
== END 2024-08-05 08:36 | disposition home or self-care (01) ==
LOC: HO.HHCL 08:35
PROVIDERS: Visit Provider Internal Medicine
DX: E11.9 Type 2 diabetes mellitus without complications (principal); E78.00 Pure hypercholesterolemia, unspecified; R79.89 Other specified abnormal findings of blood chemistry; M1A.9XX0 Chronic gout, unspecified, without tophus (tophi); Z20.2 Contact with and (suspected) exposure to infections with a predominantly sexual mode of transmission
CPT/HCPCS: 36415; 80061; 80076; 82306; 84439; 84443; 84550; 86704; 86705; 86706; 86709; 86780; 86803; 87340; 87389

== ENCOUNTER 2024-08-12 08:33 | Outpatient (REF) | payer OTHER, SELFPAY ==
[2024-08-12 12:13] LABS: Free T4 (Free Thyroxine) 0.94 ng/dL (0.71-1.85); T4 Thyroxine 5.6 ug/dL (4.5-12.0); TSH reflex Free T4 5.81 uIU/mL (0.32-4.0)
[2024-08-13 18:28] LABS: Triiodothyronine T3 Free 4.1 pg/mL (2.3-4.2); Triiodothyronine T3 Total 125 ng/dL (76-181)
[2024-08-14 05:45] LABS: Thyroglobulin Antibodies <1 IU/mL (< or = 1)
== END 2024-08-12 08:34 | disposition home or self-care (01) ==
LOC: HO.HHCL 08:33
PROVIDERS: Visit Provider Internal Medicine
DX: R79.89 Other specified abnormal findings of blood chemistry (principal)
CPT/HCPCS: 36415; 84436; 84439; 84443; 84480; 84481; 86800

== ENCOUNTER 2024-09-11 07:58 | Outpatient (AMB) | payer OTHER, SELFPAY ==
--- NOTE | 2024-09-11 08:03 | MHC.OFFVIS ---
Vital Signs 09/11/24 08:05 Height 5 ft 4 in Weight 173 lb 8.061 oz BMI 29.8 BP 128/64 Blood Pressure Location Lt brachial Position Sitting Pulse 91 Pulse Source Pulse Oximeter Intake Visit Reasons: Elevated TSH Intake Note: Patient present today for elevated TSH. Software Developer Required: No Accompanied by: Self / Same As Patient Allergies No Known Allergies [No Known Allergies*] Allergy (Verified 09/11/24 08:07) Medication List - Last Reconciled 09/11/24 by Monica Graham MD acamprosate 666 mg PO TID allopurinol 300 mg PO DAILY buspirone 10 mg PO BID gabapentin 300 mg PO TID mirtazapine 15 mg PO BEDTIME trazodone 50 mg PO BEDTIME PRN HPI Comments Details: 64-year-old male here today for initial evaluation of subclinical hyperthyroidism. He has had elevated TSH at least since December 2020 were TSH was elevated at 5.24. Most recently labs done on 08/12/2024 showed elevated TSH 5.81 with normal free t4 0.94 and total T4 of 5.6 and normal free T3 and total T3 as well. Thyroglobulin antibodies were undetectable. Patient currently denies heat or cold intolerance, diarrhea or constipation, hair loss, palpitation, anxiety, weight changes, mood changes, low energy, changes in appearance of eyes or vision changes, tremors, increased diaphoresis or dry skin. ? Patient denies any difficulty swallowing, pain on swallowing or voice changes or difficulty breathing. Patient denies any history of childhood neck radiation. Denies having ever used lithium, amiodarone or biotin supplements. Patient denies any family history of thyroid cancer. Sister had thyroid surgery he think but he seems to be describing hyperthyrodism/ Graves . Review of systems Constitutional: no fevers, chills or weight loss HEENT: no changes in vision Cardiac: No chest pain, discomfort or palpitations. Pulmonary: No SOB GI:No abdominal pain, no nausea or vomiting, no anorexia, no blood in stool : no burning micturition, dysuria or increase in urinary frequency Physical exam General: sitting comfortably in no acute distress HEENT: normocephalic/atraumatic,, moist oral mucosa Neck: supple, symmetrical, no thyromegaly , no dorsocervical or supraclavicular fat pads Cardiac: normal heart sounds Pulm: normal breath sounds B/L, no added breath sounds Abd: not distended, no tenderness Extremities: no edema, no signs of myxedema Neuro: AAO x3, Speech: normal, no facial droop, moving all 4 extremities [facility] Medical History (Updated 09/11/24 @ 08:31 by Monica Graham MD) Subclinical hypothyroidism Cocaine abuse in remission Essential hypertension Myalgia, unspecified site Surgical History History of left knee surgery Family History Father No problems noted. Mother Diabetes Rheumatoid arthritis Social History Household Members: None Alcohol intake: current Alcohol intake frequency: 3 or more drinks per day Patient Tobacco Use Status: Never used Tobacco Current occupational status: disabled Physical Exam Vital Signs: Last Vital Signs Pulse 91 09/11/24 08:05 BP 128/64 09/11/24 08:05 BMI result Body Mass Index 29.8 Results Reviewed Results Reviewed: Laboratory Tests 03/21/19 12/30/20 04/26/22 11:12 07:41 12:01 Free T4 0.72 TSH 5.24 H 2.08 Thyroxine (T4) Free T3 Total T3 Thyroglobulin Antibody 08/05/24 08/12/24 08/12/24 08:40 08:37 08:57 Free T4 0.82 0.94 TSH 4.34 H 5.81 H Thyroxine (T4) 5.6 Free T3 4.1 Total T3 125 Thyroglobulin Antibody <1 Assessment & Plan Assessment & Plan (1) Subclinical hypothyroidism: Code(s): E03.8 - Other specified hypothyroidism Category: Medical Plan: Patient with subclinical hypothyroidism coming in today to establish care. Labs have showed elevated TSH at least from 2020. His TSH has remained within the 5-5.9 range. Most recent labs from 08/12/2024 elevated TSH 5.81 with normal free t4 0.94 and total T4 of 5.6 and normal free T3 and total T3 as well. Thyroglobulin antibodies were undetectable. No TPO antibodies done. At this point we do not need to do further investigation given that he does not meet criteria for treatment which is TSH of greater than 10 or TSH of 6 to 9 with severe symptoms. He does not have any symptoms of hypothyroidism or hyperthyroidism. Especially given that he is almost 65 years old, we are very conservative about treating subclinical hypothyroidism in the elderly. He can have thyroid function checked with his primary care physician every year to ensure that he is not having overt hypothyroidism. For now no medication needed. Plan: -primary care physician can check thyroid function tests including TSH, free T4 every year and refer back to us if develops overt hypothyroidism or TSH becomes greater than 10 Plan See above Patient Instructions: Have thyroid function blood work done with your primary care physician every year If it becomes overt hypothyroidism they can refer you back to me For now no need of medication Coding Level of Care Code New Pt Level 3 (09604) Diagnoses Subclinical hypothyroidism E03.8
[2024-09-11 08:05] VITALS: BP 128/64; PULSE 91; BMI 29.8
== END 2024-09-11 08:27 | disposition home or self-care (01) ==
PROVIDERS: Visit Provider Student in an Organized Health Care Education/Training Program
DX: E03.8 Other specified hypothyroidism (principal)
CPT/HCPCS: 99203

== ENCOUNTER → 2024-09-11 07:58 | Outpatient (BNVA) | payer OTHER, SELFPAY | PROVIDERS: Visit Provider Student in an Organized Health Care Education/Training Program | DX: E03.8 Other specified hypothyroidism (principal) | CPT/HCPCS: 99202 ==

== ENCOUNTER 2025-06-08 08:46 | Outpatient (REF) | payer OTHER, SELFPAY ==
--- NOTE | ~2025-06-08 | XR_ITS ---
EXAMINATION: XR FOOT 3 OR MORE VIEWS RIGHT, XR ANKLE 3 OR MORE VIEWS RIGHT HISTORY: R foot pain, foreign body? COMPARISON: There are no prior studies available for comparison. FINDINGS: Nine views of the right foot and ankle are submitted. Osseous mineralization is normal. There is no fracture or dislocation. There is mild degenerative change of the 1st MTP joint. There are vascular calcifications. There is no radiopaque foreign body. XR/XR foot RT min 3V IMPRESSION: Mild degenerative change of the 1st MTP joint. No radiopaque foreign body is identified. Electronically signed by: Harshal Malave MD 06/08/2025 09:47 AM EDT
--- NOTE | ~2025-06-08 | XR_ITS ---
EXAMINATION: XR FOOT 3 OR MORE VIEWS RIGHT, XR ANKLE 3 OR MORE VIEWS RIGHT HISTORY: R foot pain, foreign body? COMPARISON: There are no prior studies available for comparison. FINDINGS: Nine views of the right foot and ankle are submitted. Osseous mineralization is normal. There is no fracture or dislocation. There is mild degenerative change of the 1st MTP joint. There are vascular calcifications. There is no radiopaque foreign body. XR/XR ankle RT min 3V IMPRESSION: Mild degenerative change of the 1st MTP joint. No radiopaque foreign body is identified. Electronically signed by: Harshal Malave MD 06/08/2025 09:47 AM EDT
--- OUTSIDE RECORDS SUMMARY | 2025-06-08 08:53 | XMS_ITS | Patient Health Record ---
[facility] Organization [facility] Address [address] [place] [address] Care Team Providers Care Planning Manager Name Role Phone Adis CLARK, Elsie Primary Care Provider Unavail able [place] Neves Jr Unavailable RICO MORTON Unavailable Unavailable Reason For Referral No Information Medications Medication SIG (Take, Route, Frequency, Duration) Notes Start Date End Date Status Colyte with Flavor Packs 240 GM As directed Orally Over the specified time. for 1 day(s) 05/09/2019 Active Plan Of Treatment No Information Insurance Providers Payer Name Payer Address Payer Phone Subscriber Number Group Number Insured Name Patient Relationship to Insured Coverage Start Date Coverage End Date [facility] [address] [place] [id number] SHARA BOOGIE Self - patient is the insured
--- OUTSIDE RECORDS SUMMARY | 2025-06-08 08:53 | XMS_ITS | Clinical Summary ---
Author Organization [employer] Address [address] [place] [address] [address] [place] [address] Care Team Providers Care Seam Rubbing Machine Operator Name Role Phone Elsie Arceo MD Primary Care Provider + Allergies Active Allergy Reactions Criticality Noted Date Comments Aspirin GI bleeding 02/20/2019 Medications simvastatin (Zocor) 40 MG tabletIndications: Mixed hyperlipidemia TAKE 1 TABLET BY MOUTH EVERY EVENING 90 tablet 3 3 Active allopurinol (Zyloprim) 300 MG tabletIndications: Acute idiopathic gout of right ankle TAKE 1 TABLET BY MOUTH EVERY DAY 90 tablet 3 4 Active cyclobenzaprine (Flexeril) 10 MG tablet Take 1 tablet (10 mg) by mouth if needed in the morning and at bedtime for muscle spasms. 10 tablet 4 Active gabapentin (Neurontin) 300 MG capsuleIndications :Anxiety Take 1 capsule (300 mg) by mouth 2 times daily. 60 capsule 3 5 Active enalapril (Vasotec) 10 MG tabletIndications: Benign essential hypertension Take 1 tablet (10 mg) by mouth Once per day. 90 tablet 3 5 04/21/20 26 Active acamprosate (Campral) 333 MG EC tablet Take 2 tablets by mouth every 6 (six) hours during the day. 5 Active busPIRone (Buspar) 10 MG tablet Take 1 tablet by mouth 2 times daily. 5 Active Diclofenac Sodium 1 % gel APPLY 1 INCH TOPICALLY TO AFFECTED AREA(S) TWICE DAILY IN THE MORNING AND AT BEDTIME NEEDED FOR PAIN 5 Active hydrOXYzine pamoate (Vistaril) 25 MG capsule TAKE 1 CAPSULE BY MOUTH EVERY DAY AT BEDTIME NEEDED FOR ANXIETY 5 Active mirtazapine (Remeron) 15 MG tablet Take 15 mg by mouth at bedtime. 5 Active predniSONE (Deltasone) 20 MG tablet Take 1 tablet (20 mg) by mouth Once per day for 5 days. 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 Graham, no need for medical treatment at this time Follow-up TFTs once per year and refer back as needed if he develops overt hypothyroidism or TSH above 10 Sciatica of right side 10/14/2024 Overview (10/14/2024): Likely musculoskeletal. Non-focal, normal motor exam without neurological deficits. No back pain red-flags: bowel/bladder incontinence, IVDU, urinary retention, saddle anesthesia, and significant motor deficits. -Recommend ibuprofen and prednisone. -Physical therapy referral offered. -Lifting precaution sand stretching reviewed. -ER precaution discussed. - Recommended exercises on YouTube to help with Sciatic pain 10/14/24 - Prescribed short form of predniSONE (Deltasone) 20 MG tablet 10/14/24 - Prescribed ibuprofen 800 MG tablet 10/14/24 - ER precautions discussed. - Seek medical attention for worsening symptoms. Assessment & Plan (11/11/2024 12:08 PM EST): Will do Toradol injection, pt has previous GI intolerance to Aspirin, but not an allergy, but he has tolerated Ibuprofen. Continue Tylenol + Flexeril BID x 1 week, then PRN. Advised to do stretching exercises at home and come to acupuncture clinic. FU with me in 6-8 weeks. Assessment & Plan (10/14/2024 2:01 PM EST): Likely musculoskeletal. Non-focal, normal motor exam without neurological deficits. No back pain red-flags: bowel/bladder incontinence, IVDU, urinary retention, saddle anesthesia, and significant motor deficits. -Recommend ibuprofen and prednisone. -Physical therapy referral offered. -Lifting precaution sand stretching reviewed. -ER precaution discussed. - Recommended exercises on YouTube to help with Sciatic pain 10/14/24 - Prescribed short form of predniSONE (Deltasone) 20 MG tablet 10/14/24 - Prescribed ibuprofen 800 MG tablet 10/14/24 - ER precautions discussed. - Seek medical attention for worsening symptoms. Chronic gout without tophus 07/28/2024 Assessment & Plan (06/06/2025 12:26 PM EDT): Pt with swelling and mild redness of R ankle and plantar surface of his foot. This could represent a gout flare, MSK injury, foreign body. Will start prednisone 50mg today due to acuity of his pain. He cannot make it to pharmacy on the weekend, so will send remainder of prednisone treatment to [facility] for Sunday06/08/25. - xrays ordered to be completed 06/08/25 - he may need podiatry referral for revision of previous surgery Assessment & Plan (07/28/2024 10:19 AM EDT): - advised importance to follow low purine diet avoiding alcohol including wine - remind him the importance of taking Allopurinol daily - check uric acid levels Encounter for assessment of STD exposure 024 Assessment & Plan (07/28/2024 10:19 AM EDT): - reminded him to use condoms at all times - agreed to be checked for STIs Spinal stenosis of lumbar region 11/28/2022 Assessment & Plan (01/30/2025 9:11 AM EDT): Has recurrent low back pain with sciatica, no claudication. Toradol injection today, I advised him to do stretching exercises and continue Tylenol and gabapentin twice daily for at least 1 week. Refused PT referral and he has information on acupuncture. Advised him to call for Toradol injection as needed, he may be able to get daily x 3 doses maximum. Post-traumatic osteoarthritis of left knee 11/28 Raised TSH level 11/28/2022 Assessment & Plan (07/28/2024 10:02 AM EDT): - repeat TSH Recurrent major depression in partial remission 11/28/2022 Assessment & Plan (01/30/2025 9:13 AM EDT): See anxiety above Cervical spondylosis 02/11/2018 Assessment & Plan (07/28/2024 10:01 AM EDT): - advised to use Tylenol 500-1000 mg BID PRN pain - advised about stretching exercises at home - apply heat to affected area - gave info about walk-in acupuncture clinic Chronic low back pain 01/31/2018 Anxiety 11/06/2017 Assessment & Plan (01/30/2025 9:12 AM EDT): He is doing well off medications, takes gabapentin on and off especially for pain. He is sleeping well Continues to see psychotherapist monthly He feels safe at home, he is not using recreational substances or alcohol. Benign essential hypertension 11/06/2017 Assessment & Plan (06/06/2025 12:28 PM EDT): Uncontrolled today, he did not take his medications today Advised him to take enalapril once he gets home Followup with PCP when he has next appointment 06/16/25 Assessment & Plan (01/30/2025 9:14 AM EDT): Uncontrolled today, he did not take his medications today, unclear if he is fully compliant. Advised him to take enalapril once he gets home, continue checking BP daily and drop BP log in 2 weeks We have a lengthy discussion regarding the importance of taking medications regularly, avoid smoking or recreational substances and treat pain properly. Hyperlipidemia 11/06/2017 Assessment & Plan (01/30/2025 9:13 AM EDT): LDL is at goal. Continue simvastatin and follow-up lipids in 1 year Recommended moderate amount of exercise and increase consumption of fruit, vegetables, fish and high fiber foods. Should decrease consumption of highly saturated fats or trans fats. Assessment & Plan (07/28/2024 10:17 AM EDT): He is on Simvastatin Will check lipids and adjust medications as needed We discussed re rx options. Recommended moderate amount of exercise and increase consumption of fruit, vegetables, fish and high fiber foods. Should decrease consumption of highly saturated fats or trans fats. Insomnia 11/06/2017 Resolved Problems Problem Noted Date Diagnosed Date Resolved Date Gout of right ankle 11/28/2022 07/28/20 Assessment & Plan (12/13/2022 12:13 PM EST): Pt to start prednisone x 5 days and continue Naproxen PRN. Increase allopurinol to 300mg per day. Counseled to avoid high-protein meals including fish, nuts, red meat or alcohol. Refer to rheumatology and FU with me in 3 months with labs. Pt had prescription for 2 antibiotics and after calling provider who saw him last night, antibiotics are discontinued. Diabetes mellitus without complication 11/06/2017 07/28/2024 Assessment & Plan (07/28/2024 12:04 PM EDT): Resolved, A1c is less than 5.5 without meds. it was most likely related to PRD use (gout attacks). No need for addtl fu , for now, will continue routine FBS with labs. 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, unspecified laterality (Primary Dx); Dietary counseling; Exercise counseling; Overweight; Benign essential hypertension 06/06/2025 Travel 06/05/2025 Telephone [facility] [address] [place] [phone] Elsie Arceo MD telephone call 04/21/2025 Refill [facility] [address] [place] [phone] Elsie Arceo MD Benign essential hypertension 04/21/2025 Refill [facility] [address] [place] [phone] Elsie Arceo MD Anxiety; Benign essential hypertension 03/11/2025 Telephone [facility] [address] [place] [address] Elsie Arceo MD May recall from Last 3 Months Immunizations Immunization Administration Dates Next Due INFLUENZA INJECTABLE QUADRIV ALANT CCIIV4 MDCK Multi-dose vial 11/13/2019 Influenza Injectable Quadriv alant Preservative Free IIV4 MDCK 10/09/2023 Influenza injectable quadriv alent IIV4 with preservative 09/19/2018,11/06/2017 Influenza injectable quadrivalent preservative f ree 08/24/2020 Moderna Covid-19 Vaccine 12+ 04/06/2022,02/16/20 21 Pfizer Covid-19 Vaccine 12+ 10/25/2023 Pneumococcal Conjugate PCV 20 07/28/2024 Pneumococcal Polysaccharide PPSV23 09/19/2018 Tdap 05/13/2020,09/19/2018 Zoster, Recombinant 06/29/2022,04/21/2022 Social History Tobacco Use Types Packs/Day Years Used Date Smoking Tobacco: Never Smokeless Tobacco: Never Tobacco Cessation:Counseling Given: Not Answered Alcohol Use Standard Drinks/Week Comments Yes 0 (1 standard drink = 0.6 oz pur e alcohol) Ocassionally Housing Stability Answer Date Recorded What is your housing situation today? I have lashay maier 07/09/[address] you li ve. Do you have problems with any of the following? None of the above 07/09/2024 Food Insecurity Answer Date Recorded Within the past 12 months, y ou worried that your food would run out before you got money to buy more: Never True 07/09/2024 Within the past 12 months,th e food you bought just didn't last and you didn't have enough money to get more: Never True Transportation Answer Date Recorded In the past 12 months, has l ack of transportation kept you from medical appts, meetings, work or from getting things needed for daily living? No 07/09/2024 Utilities Answer Date Recorded In the past 12 months, has t he electric, gas, oil or water company threatened to shut off services in your home? No 07/09/2024 Internet Access Answer Date Recorded Internet Access Q1 Yes 07/21/2024 Internet Access Q2 Not on file 07/21/2024 Sex and Gender Information Value Date Recorded Sex Assigned at Male 09/18/2022 10:24 AM EDT Legal Sex Male 10:24 AM EDT Gender Identity Male 09/18/2022 10:24 AM EDT Sexual Orientation Choose not to disclose 2021 10:24 AM EDT Last Filed Vital Signs Vital Sign Reading Time Taken Comments Blood Pressure 168/92 06/06/2025 11:50 AM EDT Pulse 82 06/06/2025 11:50 AM EDT Temperature 36.6 C (97.8 F) 06/06/2025 11:50 AM EDT Respiratory Rate 20 11/11/2024 11:43 AM EST Oxygen Saturation 97% 06/06/2025 11:50 AM EDT Inhaled Oxygen Concentration - - Weight 74.9 kg (165 lb 2 oz) 06/06/2025 11:50 AM EDT Height 165.1 cm (5' 5 ) 06/06/2025 11:50 AM EDT Body Mass Index 27.48 06/06/2025 11:50 AM EDT Plan of Treatment Upcoming Encounters Date Type Department Care Team (Late st Contact Info) Description 06/16/2025 11:15 AM EDT Office Visit [facility] [address] [place] [phone] Elsie Arceo MD [address] [place] [address] Health Maintenance Due Date Last Done Comments CT Colonography 1960 Dental Oral Exam 1960 Dental Prophylaxis 1960 Dental X-Ray: Bitewings 1960 Dental X-Ray: Full Mouth 1960 Depression Screening 1960 FIT DNA/Cologuard 1960 FIT 1960 FOBT 1960 Sigmoidoscopy 1960 Disability Screening 1960 Eye Exam 1970 Alcohol/Substance Use Screening 1972 Diabetes: Urine Protein Screening 11/05/2020 11/05/2019 Diabetes: Foot Exam 11/28/2023 11/28/2022, 11/28/2022, 11/28/2022 COVID-19 Vaccine ( season) 2024 10/25/2023, 09/27/2022, 04/06/2022, Additional history exists Diabetes: Hemoglobin A1C 01/25/2025 07/28/2024 SDOH Screening 07/09/2025 07/09/2024 Influenza Vaccine (#1) 2025 3, 08/24/2020, 11/13/2019, Additional history exists Lipid Panel 08/05/2025 08/05/2024 Tobacco Screening 06/06/2026 06/06/2025 Colonoscopy 06/18/2029 06/18/2019 Colorectal Cancer Screening 06/18/2029 DTaP/Tdap/Td Vaccines (3 - Td or Tdap) 05/13/2030 05/13/2020, 09/19/2018 RSV Patients and Patients Aged 60 years or older (1 - 1-dose 75+ series) 2035 Zoster Vaccines Completed 06/29/2022, 04/21/2022 Pneumococcal Vaccine: 50+ Years Completed 07/28/2024, 09/19/2018 HIV Screening Completed 08/05/2024 Hepatitis C Screening Completed 08/05/2024 HIB Vaccines Aged Out No longer eligi ble based on patient's age to complete this topic HPV Vaccines Aged Out No longer eligi ble based on patient's age to complete this topic Hepatitis A Vaccines Aged Out No long er eligible based on patient's age to complete this topic Hepatitis B Vaccines Aged Out No long er eligible based on patient's age to complete this topic IPV Vaccines Aged Out No longer eligi ble based on patient's age to complete this topic Meningococcal B Vaccine Aged Out No l onger eligible based on patient's age to complete this topic Meningococcal Vaccine Aged Out No lainey dani eligible based on patient's age to complete this topic RSV under 20 months Aged Out No longe r eligible based on patient's age to complete this topic Rotavirus Vaccines Aged Out No longer eligible based on patient's age to complete this topic Procedures Procedure Name Priority Date/Time Associated Diagnosis Comments HEPATITIS PANEL, GENERAL Routine 08/05/2024 8:40 AM EDT Encounter for assessment of STD exposure HIV 1/2 ANTIGEN/ANTIBODY, FOURTH GENERATION W/RFL Routine 08/05/2024 8:40 AM EDT Encounter for assessment of STD exposure LIPID PANEL WITH REFLEX TO DIRECT LDL Routine 08/05/2024 8:40 AM EDT Diabetes mellitus without complication (CMS/HCC) Pure hypercholesterolemia POCT GLYCATED HEMOGLOBIN, TOTAL Routine 07/28/2024 9:47 AM EDT Diabetes mellitus without complication (CMS/HCC) ZZZ HISTORICAL MICROALBUMIN, RANDOM Routine 11/05/2019 12:00 AM EST HM COLONOSCOPY Routine 06/18/2019 1:48 PM EDT from Last 3 Months or Most Recently Relevant to Health Maintenance Results * Lipid Panel with Reflex to Direct LDL (08/05/2024 8:40 AM EDT) Triglycerides 129 <150 mg/dL [facility] Comment:Desirable Triglyceri de: less than 150 mg/dLBorderline High Triglyceride 150-199 mg/dLHigh Triglyceride: 200-499 mg/dLVery High Triglyceride: greater than or equal to 5OO mg/dL Cholesterol 179 <200 mg/dL [facility] Comment:Desirable Cholestero l: less than 200 mg/dLBorderline High Cholesterol: 200-239 mg/dLHigh Cholesterol: greater than 239 mg/dL LDL Cholesterol Calculated 77 <100 mg/dL [facility] Comment:Desirable LDL: less than 100 mg/dLNear Optimal/Above Optimal LDL: 110- 129 mg/dLBorderline High LDL: 130-159 mg/dLHigh LDL: 160-189 mg/dLVery High LDL: greater than or equal to 190 mg/dL HDL Cholesterol 77 >40 mg/dL [facility] Comment:Desirable HDL: great er than 40 mg/dL Note: This HDL assay may give artificially low results in patients with liver disease. Blood 08/05/2024 8:40 AM EDT 08/05/2024 11:36 AM EDT Elsie Arceo MD LAB BLOOD ORDERABLES Fin al Result Performing Organization Address [facility] Co de Phone Number [facility] [address] [place] [phone] * Hepatitis Panel, General (08/05/2024 8:40 AM EDT) Hepatitis A IgM Nonreactive Nonreactive [facility] Comment:IgM antibodies to DRUMMOND V not detected; does not exclude earlyacute or recovered HAV infection. ~Hepatitis B Surface Antibody GRAYZONE Nonreactive [facility] Comment:GRAYZONE: 8.00 mIU/m L TO 11.99 mIU/mLTHE IMMUNE STATUS OF THE INDIVIDUAL SHOULD BE FURTHERASSESSED BY CONSIDERING OTHER FACTORS, SUCH CLINICALSTATUS, FOLLOW-UP TESTING, ASSOCIATED RISK FACTORS, AND THEUSE OF ADDITIONAL DIAGNOSTIC INFORMATION. Hepatitis B Core Antibody Reactive Nonreactive [facility] Comment:Presumptive evidence of anti-HBc. Hepatitis C Antibody Nonreactive Nonreactive [facility] Comment:Antibodies to HCV no t detected; does not exclude early acuteHCV infection. Hepatitis B Surface Ag Negative Negative [facility] Blood 08/05/2024 8:40 AM EDT 08/05/2024 11:36 AM EDT us Elsie Arceo MD LAB BLOOD ORDERABLES Fin al Result Performing Organization Address [facility] Co de Phone Number [facility] [address] [place] [phone] * HIV-1/2 Antigen and Antibodies, Fourth Generation, with Reflexes (08/05/2024 8:40 AM EDT) HIV AB/AG Nonreactive Nonreactive [facility] Comment:HIV-1 p24 Ag and/or HIV-1/HIV-2 Ab not detected.A test result that is nonreactive does not exclude thepossibility of exposure to or infection with HIV-1 and/orHIV-2. Nonreactive results in this assay for individualswith prior exposure to HIV-1 and/or HIV-2 may be due toantigen and antibody levels that are below the limit ofdetection of this assay.The [employer] HIV Ag/Ab Combo assay result andsupplemental assay results should be interpreted inconjunction with the patient's clinical presentation,history and other laboratory results. If the results areinconsistent with clinical evidence, additional testing issuggested to confirm the result. Blood Venous blood specimen / Unknown 08/05/2024 8:40 AM EDT 08/05/2024 11:36 AM EDT Elsie Arceo MD LAB BLOOD ORDERABLES Fin al Result Performing Organization Address City/[facility] Co de Phone Number [facility] [address] [place] [phone] * POCT HGB A1C (07/28/2024 9:47 AM EDT) Hemoglobin A1C 5.5 4.0 - 6.0 % QC Media Lot # [id number] Lot# Expiration Date [id number] Blood 07/28/2024 9:47 AM EDT Elsie Arceo MD POINT OF CARE TEST ENTER /EDIT ORDERABLES Final Result * MICROALBUMIN, RANDOM (11/05/2019 12:00 AM EST) CREATININE, RANDOM URINE 261.99 MG/DL [facility] MICALB/CRE RATIO RANDOM URINE 3.8 ug/mg cr [facility] Comment: Albumin/Creatinine Ratio Reference Ranges: Normal: < 30 ug/mg creatinine Microalbuminuria: 30 - 300 ug/mg creatinine Clinical Albuminuria: > 300 ug/mg creatinine MICROALBUMIN, RANDOM URINE 10.0 MG/L [facility] 11/05/2019 Elsie Arceo MD HISTORICAL/NON ORDERABLE LABS Final Result [facility] [address] [place] [phone], * Hm Colonoscopy (06/18/2019 1:48 PM EDT) Colonoscopy Normal Normal Narrative Valarie Coy - 06/18/2019 1:48 PM EDT Recommended 10 year follow up (Dr. Beal) us Historical Provider HEALTH MAINTENANCE Edited Result - Final from Last 3 Months or Most Recently Relevant to Health Maintenance Insurance [address] [address] [place] [address] Care Teams Seam Rubbing Machine Operator Relationship Specialty Start Date End Date Elsie Arceo MD [address] [place] [phone] PCP - General Family Medicine 11/06/17
== END 2025-06-08 08:47 | disposition home or self-care (01) ==
LOC: HO.HHCX 08:46
PROVIDERS: PCP Internal Medicine; Visit Provider General Practice
DX: M1A.4790 Other secondary chronic gout, unspecified ankle and foot, without tophus (tophi) (principal)
CPT/HCPCS: 73610; 73630

== ENCOUNTER → 2025-06-08 08:51 | Outpatient (BNV) | payer OTHER, SELFPAY | PROVIDERS: PCP Internal Medicine; Visit Provider Radiology Diagnostic Radiology | DX: M79.671 Pain in right foot (principal) | CPT/HCPCS: 73610; 73630 ==

== ENCOUNTER 2025-07-03 07:18 | Outpatient (REF) | payer OTHER, SELFPAY ==
--- OUTSIDE RECORDS SUMMARY | 2025-07-03 07:20 | XMS_ITS | Clinical Summary ---
Author Organization [facility] Address [address] [place] [address] Phone Care Team Providers Care Aircraft Loadmaster Superintendent Name Role Phone Marifer St MD Primary Care Provider [phone] Social History Tobacco Use Types Packs/Day Years Used Date Smoking Tobacco: Never Assessed Sex and Gender Information Value Date Recorded Sex Assigned at Not on file Legal Sex Male 2:08 AM EST Gender Identity Not on file Sexual Orientation Not on file Plan of Treatment Upcoming Encounters Date Type Department Care Team ([facility] Contact Info) Description 07/07/2025 8:30 AM EDT Consult Orthopedic Surgery - [place] [phone] [phone] Yung Wing, DPElma [address] [address] Health Maintenance Due Date Last Done Comments DTaP,Tdap,and Td Vaccines (1 - Tdap) 1979 Pneumococcal Vaccine: 50+ Ye ars (1 of 1 - PCV) 2010 Zoster Vaccines (1 of 2) 2010 COVID-19 Vaccine ( - 2023-2 5 season) 2024 Depression Screening 11/19/2024 Cholesterol Screening (Lipid Panel) 07/01/2025 Colorectal Cancer Screening: Colonoscopy 07/01/2025 HIV Screening 07/01/2025 Hepatitis C Screening 07/01/2025 Medicare Annual Wellness Visit 07/01/2025 Social Influencers of Health Screening 07/01/2025 Influenza Vaccine (#1) 2025 RSV Immunization Adult Patie nts (1 - 1-dose 75+ series) 2035 HIB Vaccines Aged Out No longer eligi [...] on patient's age to complete this topic MMR Vaccines Aged Out No longer eligi ble based on patient's age to complete this topic Meningococcal ACWY Vaccine Aged Out N o longer eligible based on patient's age to complete this topic Meningococcal B Vaccine Aged Out No l onger eligible based on patient's age to complete this topic RSV Immunization Patients Un rafa 20 months Aged Out No longer eligible b ased on patient's age to complete this topic Varicella Vaccines Aged Out No longer eligible based on patient's age to complete this topic Insurance [employer] MEDICARE Member Subscriber Plan / Payer (Ef fective 2025-Present) Name:LUIS A BOOGIE Relation to Subscriber:Self Name:Luis A Boogie Payer ID:[id number] Group ID:Not on file Type:Not on file Address: [place] [address] [address] [phone] Care Teams Aircraft Loadmaster Superintendent Relationship Specialty Start Date End Date Marifer St MD [address] [place] [phone] PCP - General Manager Underwriting 07/01/25
--- OUTSIDE RECORDS SUMMARY | 2025-07-03 07:21 | XMS_ITS | Clinical Summary ---
Author Organization [employer] Address [address] [place] [address] [address] [place] [address] Care Team Providers Care Savings Teller Name Role Phone Elsie Arceo MD Primary Care Provider + Allergies Active Allergy Reactions Criticality Noted Date Comments Aspirin GI bleeding 02/20/2019 Medications simvastatin (Zocor) 40 MG tabletIndications :Mixed hyperlipidemia TAKE 1 TABLET BY MOUTH EVERY EVENING 90 tablet 3 01/22/20 23 Active allopurinol (Zyloprim) 300 MG tabletIndications :Acute idiopathic gout of right ankle TAKE 1 TABLET BY MOUTH EVERY DAY 90 tablet 3 01/22/20 24 Active gabapentin (Neurontin) 300 MG capsuleIndication s:Anxiety Take 1 capsule (300 mg) by mouth 2 times daily. 60 capsule 3 01/31/20 25 Active enalapril (Vasotec) 10 MG tabletIndications :Benign essential hypertension Take 1 tablet (10 mg) by mouth Once per day. 90 tablet 3 04/21/20 25 2025 Active acamprosate (Campral) 333 MG EC tablet Take 2 tablets by mouth every 6 (six) hours during the day. 05/25/20 25 Active busPIRone (Buspar) 10 MG tablet Take 1 tablet by mouth 2 times daily. 05/25/20 25 Active Diclofenac Sodium 1 % gel APPLY 1 INCH TOPICALLY TO AFFECTED AREA(S) TWICE DAILY IN THE MORNING AND AT BEDTIME NEEDED FOR PAIN 04/20/20 25 Active hydrOXYzine pamoate (Vistaril) 25 MG capsule TAKE 1 CAPSULE BY MOUTH EVERY DAY AT BEDTIME NEEDED FOR ANXIETY 05/25/20 25 Active mirtazapine (Remeron) 15 MG tablet Take 15 mg by mouth at bedtime. 05/25/20 25 Active cyclobenzaprine (Flexeril) 10 MG tabletIndications :Sciatica of right side Take 1 tablet (10 mg) by mouth if needed at bedtime for muscle spasms. 30 tablet 06/16/20 25 2024 Active cyclobenzaprine (Flexeril) 10 MG tablet Take 1 tablet (10 mg) by mouth if needed in the morning and at bedtime for muscle spasms. 10 tablet 11/11/20 24 2024 Discontinued(R eorder (will not trigger notification to Pharmacy)) predniSONE (Deltasone) 20 MG tablet Take 1 tablet (20 mg) by mouth Once per day for 5 days. 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 Graham. Check TSH, he is not on thyroid supplementation Assessment & Plan (01/30/2025 1:25 PM EDT): Seen by road tester Dr. Graham, no need for medical treatment [...] attention for worsening symptoms. Assessment & Plan (06/17/2025 2:54 PM EDT): Will give Toradol injection today, continue ibuprofen and Tylenol breakthrough pain Continue cyclobenzaprine nightly x 1 week then as needed Reminded him to come to acupuncture clinic He declined PT or pain clinic referral at this time, I order MRI of L-spine, may need referral to pain clinic if symptoms do not improve. Assessment & Plan (11/11/2024 12:08 PM EST): [...] will send remainder of prednisone treatment to [facility] for Sunday06/08/25. - xrays ordered to be [...] in partial remission 11/28/2022 Assessment & Plan (06/17/2025 2:52 PM EDT): Doing well, he feels safe at home and is able to reach out for safety. He will follow-up with mental health provider group He sees therapist Carmen Smith from [facility] services in [place]. Continue BuSpar, gabapentin, hydroxyzine and mirtazapine nightly as needed insomnia Assessment & Plan (01/30/2025 9:13 AM EDT): [...] Benign essential hypertension 11/06/2017 Assessment & Plan (06/17/2025 2:55 PM EDT): Controlled. Compliant w/meds, to take medications every day. Continue enalapril same dose Counseled re low salt diet/increase moderate physical activity. Check home BP BIW and prn CP/DRUMMOND/HARRISON Follow-up in 6-month with labs Assessment & Plan (06/06/2025 12:28 PM EDT): [...] Date Gout of right ankle 11/28/2022 07/28/20 24 Assessment & Plan (12/13/2022 12:13 PM EST): [...] Encounters Date Type Department Care Team Description 06/29/2025 Orders Only [facility] [address] [place] [phone] MD Chronic gout without tophus, unspecified cause, unspecified site (Primary Dx); Pain in right foot 06/25/2025 Results Follow-Up [facility] [address] [place] [address] MD XR Ankle 3+ Views Right 06/16/2025 11:15 AM EDT Office Visit [facility] [address] [place] [phone] Elsie Arceo MD Sciatica of right side (Primary Dx); Benign essential hypertension; Subclinical hypothyroidism; Recurrent major depression in partial remission ([facility]) 06/16/2025 Travel 06/12/2025 Telephone [facility] [address] [place] [address] Elsie Arceo MD chart prep 06/08/2025 Patient Outreach [facility] [address] [place] [phone] Elsie Arceo MD Pre-visit Planning ((SDOH screening negative tobacco screening positive)) 06/06/2025 12:20 PM EDT Office Visit [facility] [address] [place] [phone] MD 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, unspecified laterality (Primary Dx); Dietary counseling; Exercise counseling; Overweight; Benign essential hypertension 06/06/2025 Travel 06/05/2025 Telephone [facility] [address] [place] [phone] Elsie Arceo MD telephone call 04/21/2025 Refill [facility] [address] [place] [phone] Elsie Arceo MD Benign essential hypertension 04/21/2025 Refill [facility] [address] [place] [phone] Elsie Arceo MD Anxiety; Benign essential hypertension from Last 3 Months Immunizations Immunization Administration [...] Packs/Day Years Used Date Smoking Tobacco: Never Passive Smoke Exposure: Never Smokeless Tobacco: Never Tobacco Cessation:Counseling Given: Not Answered Alcohol Use Standard Drinks/Week Comments Yes 0 (1 standard drink = 0.6 oz pur e alcohol) Ocassionally Alcohol Answer Date Recorded How often do you have a drink containing alcohol ? 1 06/16/2025 How many drinks containing a lcohol do you have on a typical day when you are drinking? 0 06/16/2025 How often do you have six or more drinks on one occasion? 1 06/16/2025 Depression Answer Date Recorded Patient Health Questionnaire-9 Score 10 06/16/2025 Patient Health Questionnaire-9 Score 10 06/16/2025 Last PHQ-9: Questionnaire Data Not on file 0 06/16/2025 Housing Stability Answer Date Recorded What is [...] off services in your home? No 07/09/2024 Depression Answer Date Recorded Patient Health Questionnaire-2 Score 2 06/16/2025 Internet Access Answer Date Recorded Internet Access [...] Sign Reading Time Taken Comments Blood Pressure 124/80 06/16/2025 11:24 AM EDT Pulse 94 06/16/2025 11:24 AM EDT Temperature 36.3 C (97.3 F) 06/16/2025 11:24 AM EDT Respiratory Rate 19 06/16/2025 11:24 AM EDT Oxygen Saturation 97% 06/06/2025 11:50 AM EDT Inhaled Oxygen Concentration - - Weight 74.4 kg (164 lb) 06/16/2025 11:24 AM EDT Height 165.1 cm (5' 5 ) 06/16/2025 11:24 AM EDT Body Mass Index 27.29 06/16/2025 11:24 AM EDT Plan of Treatment Health Maintenance Due Date Last Done Comments CT Colonography 1960 Dental Oral Exam 1960 Dental Prophylaxis 1960 Dental X-Ray: Bitewings 1960 Dental X-Ray: Full Mouth 1960 FIT DNA/Cologuard 1960 FIT 1960 FOBT 1960 Sigmoidoscopy 1960 Eye Exam 1970 Diabetes: Urine Protein Screening 11/05/2020 11/05/2019 Diabetes: Foot Exam 11/28/2023 11/28/2022, 11/28/2022, 11/28/2022 COVID-19 Vaccine ( season) 2024 10/25/2023, 09/27/2022, 04/06/2022, Additional history exists Diabetes: Hemoglobin A1C 01/25/2025 07/28/2024 Influenza Vaccine (#1) 2025 , 08/24/2020, 11/13/2019, Additional history exists Lipid Panel 08/05/2025 08/05/2024 Depression Monitoring 12/17/2025 06/16/2025, 025 SDOH Screening 06/08/2026 06/08/2025 Alcohol/Substance Use Screening 06/16/2026 06/16/2025 Disability Screening 06/16/2026 06/16/2025 Tobacco Screening 06/16/2026 06/16/2025 Colonoscopy 06/18/2029 06/18/2019 Colorectal Cancer Screening 06/18/2029 [...] Procedure Name Priority Date/Time Associated Diagnosis Comments XR ANKLE 3+ VIEWS RIGHT Routine 06/08/2025 8:15 AM EDT 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, unspecified laterality XR FOOT 3+ VIEWS RIGHT Routine 06/08/2025 8:11 AM EDT 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, unspecified laterality HEPATITIS PANEL, GENERAL Routine 08/05/2024 8:40 AM [...] Recently Relevant to Health Maintenance Results * XR Ankle 3+ Views Right (06/08/2025 8:15 AM EDT) Anatomical Region Laterality Modality Lower Extremities, Ankle Right Radiogr aphic Imaging 06/08/2025 8:15 AM EDT Narrative 06/08/2025 9:51 AM EDT [facility] [address] [place] [address] XRay Report Signed Patient: Luis A Godinez MR#: [id number] : 1960 Acct:[id number] Age/Sex: 64 / M ADM Date: 06/08/25 Loc: HO.HHCX Attending Dr: Marifer St MD Ordering Physician: Marifer St Date of Service: 06/08/25 Procedure(s): XR ankle RT min 3V Accession Number(s): [id number] cc: Elsie Arceo MD; Marifer St EXAMINATION: XR FOOT 3 OR MORE VIEWS RIGHT, XR ANKLE 3 OR MORE VIEWS RIGHT HISTORY: R foot pain, foreign body? COMPARISON: There are no prior studies available for comparison. FINDINGS: Nine views of the right foot and ankle are submitted. Osseous mineralization is normal. There is no fracture or dislocation. There is mild degenerative change of the 1st MTP joint. There are vascular calcifications. There is no radiopaque foreign body. XR/XR ankle RT min 3V IMPRESSION: Mild degenerative change of the 1st MTP joint. No radiopaque foreign body is identified. Electronically signed by: Harshal Malave MD 06/08/2025 09:47 AM EDT Dictated By: Harshal Malave MD Signed By: <Electronically signed by Harshal Malave MD in OV> 06/08/25 0947 DD/ 0815 TD/TT: 06/08/25 0820 Chief Dispatcher Service: Procedure Note Donotuseinterpreter, Image - 06/08/[address] [address] XRay Report Signed Patient: Luis A GodinezMR#: [id number] : 1960Acct:[id number] Age/Sex: 64 / MADM Date: 06/08/25 Loc: HO.HHCX Attending Dr: Marifer St MD Ordering Physician: Marifer St Date of Service: 06/08/25 Procedure(s): XR ankle RT min 3V Accession Number(s): [id number] cc: Elsie Arceo MD; Marifer St EXAMINATION: XR FOOT 3 OR MORE VIEWS RIGHT, XR ANKLE 3 OR MORE VIEWS RIGHT HISTORY: R foot pain, foreign body? COMPARISON: There are no prior studies available for comparison. FINDINGS: Nine views of the right foot and ankle are submitted. Osseous mineralization is normal. There is no fracture or dislocation. There is mild degenerative change of the 1st MTP joint. There are vascular calcifications. There is no radiopaque foreign body. XR/XR ankle RT min 3V IMPRESSION: Mild degenerative change of the 1st MTP joint. No radiopaque foreign body is identified. Electronically signed by: Harshal Malave MD 06/08/2025 09:47 AM EDT Dictated By: Harshal Malave MD Signed By: <Electronically signed by Harshal Malave MD in OV> 06/08/25 0947 DD/ 0815 TD/TT: 06/08/25 0820 Chief Dispatcher Service: Marifer St MD IMG XR PROCEDURES Final Result * XR Foot 3+ Views Right (06/08/2025 8:11 AM EDT) Anatomical Region Laterality Modality Lower Extremities, Foot Right Radiogra phic Imaging 06/08/2025 8:11 AM EDT Narrative 06/08/2025 9:51 AM EDT [facility] [address] [place] [address] XRay Report Signed Patient: Luis A Godinez MR#: [id number] : 1960 Acct:[id number] Age/Sex: 64 / M ADM Date: 06/08/25 Loc: THADX Attending Dr: Marifer St MD Ordering Physician: Marifer St Date of Service: 06/08/25 Procedure(s): XR foot RT min 3V Accession Number(s): [id number] cc: Elsie Arceo MD; Marifer St EXAMINATION: XR FOOT 3 OR MORE VIEWS RIGHT, XR ANKLE 3 OR MORE VIEWS RIGHT HISTORY: R foot pain, foreign body? COMPARISON: There are no prior studies available for comparison. FINDINGS: Nine views of the right foot and ankle are submitted. Osseous mineralization is normal. There is no fracture or dislocation. There is mild degenerative change of the 1st MTP joint. There are vascular calcifications. There is no radiopaque foreign body. XR/XR foot RT min 3V IMPRESSION: Mild degenerative change of the 1st MTP joint. No radiopaque foreign body is identified. Electronically signed by: Harshal Malave MD 06/08/2025 09:47 AM EDT Dictated By: Harshal Malave MD Signed By: <Electronically signed by Harshal Malave MD in OV> 06/08/25 0947 DD/ 0811 TD/TT: 06/08/25 0820 Chief Dispatcher Service: Procedure Note Donotuseinterpreter, Image - 06/08/[address] [address] XRay Report Signed Patient: Luis A Godinez#: [id number] : 1960Acct:[id number] Age/Sex: 64 / MADM Date: 06/08/25 Loc: YOLETTECX Attending Dr: Marifer St MD Ordering Physician: Marifer St Date of Service: 06/08/25 Procedure(s): XR foot RT min 3V Accession Number(s): [id number] cc: Elsie Arceo MD; Marifer St EXAMINATION: XR FOOT 3 OR MORE VIEWS RIGHT, XR ANKLE 3 OR MORE VIEWS RIGHT HISTORY: R foot pain, foreign body? COMPARISON: There are no prior studies available for comparison. FINDINGS: Nine views of the right foot and ankle are submitted. Osseous mineralization is normal. There is no fracture or dislocation. There is mild degenerative change of the 1st MTP joint. There are vascular calcifications. There is no radiopaque foreign body. XR/XR foot RT min 3V IMPRESSION: Mild degenerative change of the 1st MTP joint. No radiopaque foreign body is identified. Electronically signed by: Harshal Malave MD 06/08/2025 09:47 AM EDT RP Dictated By: Harshal Malave MD Signed By: <Electronically signed by Harshal Malave MD in OV> 06/08/25946 DD/ 0 TD/TT: 06/08/25 08 Chief Dispatcher Service: us Marifer St MD IMG XR PROCEDURES Final Result * Lipid Panel with Reflex to Direct LDL (08/05/2024 8:40 AM EDT) Triglycerides 129 <150 mg/dL [facility] Comment:Desirable Triglyceri de: less than 150 mg/dLBorderline High Triglyceride 150-199 mg/dLHigh Triglyceride: 200-499 mg/dLVery High Triglyceride: greater than or equal to 5OO mg/dL Cholesterol 179 <200 mg/dL [facility] Comment:Desirable Cholestero l: less than 200 mg/dLBorderline High Cholesterol: 200-239 mg/dLHigh Cholesterol: greater than 239 mg/dL LDL Cholesterol Calculated 77 <100 mg/dL [facility] Comment:Desirable LDL: less than 100 mg/dLNear Optimal/Above Optimal LDL: 110- 129 mg/dLBorderline High LDL: 130-159 mg/dLHigh LDL: 160-189 mg/dLVery High LDL: greater than or equal to 190 mg/dL HDL Cholesterol 77 >40 mg/dL [facility] Comment:Desirable HDL: great er than 40 mg/dL Note: This HDL assay may give artificially low results in patients with liver disease. Blood 08/05/2024 8:40 AM EDT 08/05/2024 11:36 AM EDT us Elsie Arceo MD LAB BLOOD ORDERABLES Fin al Result Performing Organization Address [facility] Co de Phone Number [facility] [address] [place] [address] [phone] * Hepatitis Panel, General (08/05/2024 8:40 AM EDT) Hepatitis A IgM Nonreactive Nonreactive [facility] Comment:IgM antibodies to DRUMMOND V not detected; does not exclude earlyacute or recovered HAV infection. ~Hepatitis B Surface Antibody GRAYZONE Nonreactive [facility] Comment:GRAYZONE: 8.00 mIU/m L TO 11.99 mIU/mLTHE IMMUNE STATUS OF THE INDIVIDUAL SHOULD BE FURTHERASSESSED BY CONSIDERING OTHER FACTORS, SUCH CLINICALSTATUS, FOLLOW-UP TESTING, ASSOCIATED RISK FACTORS, AND THEUSE OF ADDITIONAL DIAGNOSTIC INFORMATION. Hepatitis B Core Antibody Reactive Nonreactive [facility] Comment:Presumptive evidence of anti-HBc. Hepatitis C Antibody Nonreactive Nonreactive [facility] Comment:Antibodies to HCV no t detected; does not exclude early acuteHCV infection. Hepatitis B Surface Ag Negative Negative [facility] Blood 08/05/2024 8:40 AM EDT 08/05/2024 11:36 AM EDT us Elsie Arceo MD LAB BLOOD ORDERABLES Fin al Result Performing Organization Address [facility] Co de Phone Number [facility] [address] [place] [phone] * HIV-1/2 Antigen and Antibodies, Fourth Generation, with Reflexes (08/05/2024 8:40 AM EDT) HIV AB/AG Nonreactive Nonreactive [facility] Comment:HIV-1 p24 Ag and/or HIV-1/HIV-2 Ab not detected.A test result that is nonreactive does not exclude thepossibility of exposure to or infection with HIV-1 and/orHIV-2. Nonreactive results in this assay for individualswith prior exposure to HIV-1 and/or HIV-2 may be due toantigen and antibody levels that are below the limit ofdetection of this assay.The [employer] ([employer] HIV Ag/Ab Combo assay result andsupplemental assay results should be interpreted inconjunction with the patient's clinical presentation,history and other laboratory results. If the results areinconsistent with clinical evidence, additional testing issuggested to confirm the result. Blood Venous blood specimen / Unknown 08/05/2024 8:40 AM EDT 08/05/2024 11:36 AM EDT Elsie Arceo MD LAB BLOOD ORDERABLES Fin al Result Performing Organization Address City/[facility]/ZIP Co de Phone Number [facility] [address] [place] [phone] * POCT HGB A1C (07/28/2024 9:47 AM EDT) Hemoglobin A1C 5.5 4.0 - 6.0 % QC Media Lot # [id number] Lot# Expiration Date [id number] Blood 07/28/2024 9:47 AM EDT Elsie Arceo MD POINT OF CARE TEST ENTER /EDIT ORDERABLES Final Result * MICROALBUMIN, RANDOM (11/05/2019 12:00 AM EST) CREATININE, RANDOM URINE 261.99 MG/DL [facility] MICALB/CRE RATIO RANDOM URINE 3.8 ug/mg cr [facility] Comment: Albumin/Creatinine Ratio Reference Ranges: Normal: < 30 ug/mg creatinine Microalbuminuria: 30 - 300 ug/mg creatinine Clinical Albuminuria: > 300 ug/mg creatinine MICROALBUMIN, RANDOM URINE 10.0 MG/L [facility] 11/05/2019 Elsie Arceo MD HISTORICAL/NON ORDERABLE LABS Final Result [facility] [address] [place] [address], * Hm Colonoscopy (06/18/2019 1:48 PM EDT) Colonoscopy Normal Normal Narrative Valarie Coy - 06/18/2019 1:48 PM EDT Recommended 10 year follow up (Dr. Beal) us Historical Provider HEALTH MAINTENANCE Edited Result - Final from Last 3 Months or Most Recently Relevant to Health Maintenance Insurance [facility] < 65 [facility] STANDARD [facility] Care Teams Savings Teller Relationship Specialty Start Date End Date Elsie Arceo MD [address] [place] [phone] PCP - General Family Medicine 11/06/17
--- OUTSIDE RECORDS SUMMARY | 2025-07-03 07:21 | XMS_ITS | Patient Health Record ---
Author Organization [facility] Address [address] [place] [address] Care Team Providers Care Nurse Staff Industrial Name Role Phone Adis CLARK, Elsie Primary Care Provider Unavail able [place] Jr Unavailable [phone] RICO MORTON Unavailable Unavailable Reason For Referral [...] Insured Coverage Start Date Coverage End Date [facility] [address] [place] [address] [id number] SHARA BOOGIE Self - patient is the insured
== END 2025-07-03 07:19 | disposition home or self-care (01) ==
LOC: HO.MRI 07:18
PROVIDERS: PCP Internal Medicine; Visit Provider Internal Medicine
DX: Z13.89 Encounter for screening for other disorder (principal)

== ENCOUNTER → 2025-07-14 06:14 | Outpatient (BNV) | payer MEDICARE, MEDICAID, SELFPAY | PROVIDERS: PCP Internal Medicine; Visit Provider Radiology Diagnostic Radiology | DX: M54.40 Lumbago with sciatica, unspecified side (principal); M48.061 Spinal stenosis, lumbar region without neurogenic claudication; M51.26 Other intervertebral disc displacement, lumbar region | CPT/HCPCS: 72148 ==

== ENCOUNTER 2025-07-14 07:17 | Outpatient (REF) | payer MEDICARE, MEDICAID, SELFPAY ==
--- NOTE | ~2025-07-14 | MR_ITS ---
EXAMINATION: MR LUMBAR SPINE WITHOUT IV CONTRAST History: SCIATICA AND WORSENING LBP Technique: Sagittal T1, T2 and STIR, and axial T1 and T2 weighted images of the lumbar spine were obtained per departmental protocol. Comparison: Comparison is made with the prior examination dated 08/08/2021. Findings: Again seen is a transitional vertebra at the lumbosacral junction. For the purposes of this examination, the lowest fully formed intervertebral disc will be labeled S1-2. The vertebral bodies maintain normal height. Again seen is slight retrolisthesis of L4 on L5. There is mild degenerative disc disease with disc desiccation and loss of disc height, most prominent at T12-L1 and L4-5. At T12-L1,there is no evidence of disc herniation, central spinal stenosis, or neural foraminal narrowing. At L1-2, there is a moderate left foraminal/lateral disc herniation causing narrowing of the neural foramen. This finding appears more prominent than on the prior study. At L2-3, there is mild facet and ligamentum flavum hypertrophy without central spinal or neural foraminal stenosis. There is no disc herniation. At L3-4, there is a mild disc bulge. There is facet and ligamentum flavum hypertrophy without central spinal or neural foraminal stenosis. At L4-5, there is posterior spurring and slight retrolisthesis. There is moderate to severe osteoarthritis of the facet joints causing severe central spinal stenosis and bilateral neural foraminal narrowing. At L5-S1, there is posterior spurring and severe facet osteoarthritis. There is resultant severe central spinal stenosis and bilateral neural foraminal narrowing. The conus terminates at the T12-L1 level and demonstrates normal signal intensity. The visualized paraspinal soft tissues are unremarkable. MR/MR lumbar spine wo con Impression: 1. Transitional vertebra at the lumbosacral junction. 2. Moderate left foraminal/lateral disc herniation at L1-2 causing narrowing of the left neural foramen. This finding appears more prominent than on the prior study. 3. Severe central spinal stenosis and bilateral neural foraminal narrowing at L4-5 and L5-S1 without significant change. Electronically signed by: Harshal Malave MD 07/14/2025 08:06 AM EDT
== END 2025-07-14 07:18 | disposition home or self-care (01) ==
LOC: HO.MRI 07:17
PROVIDERS: PCP Internal Medicine; Visit Provider Internal Medicine
DX: M54.31 Sciatica, right side (principal)
CPT/HCPCS: 72148